=== PATIENT | male | born 1930 | race Caucasian/White ===

== ENCOUNTER 2017-06-01 04:15 | Emergency (ER) | payer MEDICARE ==
[2017-06-01 04:40] VITALS: BP 175/68
--- NOTE | 2017-06-01 04:56 | EDM.PDOC ---
ED HPI GENERAL MEDICAL PROBLEM - General Chief Complaint: Respiratory Problem Stated Complaint: shortness of breath Time Seen by Provider: 06/01/17 04:48 Source of Information: Reports: Patient History Limitations: Reports: No Limitations - History of Present Illness INITIAL COMMENTS - FREE TEXT/NARRATIVE: PATIENT IS AN 86-YEAR-OLD GENTLEMAN WHO PRESENTS TO THE ER TODAY VIA PRIVATE VEHICLE. PATIENT STATES THAT HE AWOKE ABOUT AN HOUR AGO WITH A SEVERE COUGH AND YELLOW SPUTUM PRODUCTION. UPON WALKING FROM THE HOUSE INTO GARAGE TO GET INTO CAR, BECAME VERY SHORT OF BREATH AND HAD TO REST. NO CHEST PAIN OR DIAPHORESIS AT THAT TIME. PATIENT STATES THAT HE'S BEEN FEELING GENERALLY WELL LATELY. HE DID UNDERGO DENTAL PROCEDURE WITHIN THE LAST 2 MONTHS AND HAD SEVERAL TEETH PULLED. DENIES FEVER, NAUSEA, VOMITING, DIARRHEA, FALL, HEADACHE , DIZZINESS, OR VISION CHANGES. Onset: Today Duration: Hour(s): Improves with: Reports: None Worsens with: Reports: None Associated Symptoms: Reports: Cough, cough w sputum, Shortness of Breath. 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 - Related Data Allergies Allergy/AdvReac Type Severity Reaction Status Date / Time No Known Allergies Allergy Verified 06/01/17 04:32 Home Meds: Home Meds Aspirin [Halfprin] 81 mg PO DAILY 08/24/15 [History] Colestipol [Colestipol HCl] 1 gm PO DAILY 08/24/15 [History] Nitroglycerin [Nitrostat] 0.4 mg SL Q5M 08/24/15 [History] Simvastatin [Zocor] 80 mg PO DAILY 08/24/15 [History] Terazosin [Hytrin] 1 mg PO DAILY 08/25/15 [History] Vit A/Vit C/Vit E/Zinc/Copper [Preservision Areds Softgel] 1 cap PO BID [History] Carvedilol [Coreg] 25 mg PO WITHBREAKFAST #0 tablet 08/28/15 [Rx] Levofloxacin 750 mg PO DAILY #6 tablet 08/28/15 [Rx] Lisinopril [Prinivil] 10 mg PO BID #90 tablet 08/28/15 [Rx] Past Medical History HEENT History: Reports: Impaired Vision Cardiovascular History: Reports: High Cholesterol Gastrointestinal History: Reports: None Genitourinary History: Reports: None Musculoskeletal History: Reports: Arthritis Oncologic (Cancer) History: Reports: Prostate - Infectious Disease History Infectious Disease History: Reports: Chicken Pox, Measles, Mumps - Past Surgical History HEENT Surgical History: Reports: LASIK, Other (See Below) Cardiovascular Surgical History: Reports: Coronary Artery Bypass Male Surgical History: Reports: Other (See Below) Musculoskeletal Surgical History: Reports: Shoulder Replacement, Shoulder Surgery, Other (See Below) Social & Family History - Family History Respiratory: Reports: Asthma - Tobacco Use Smoking Status *Q: Former Smoker Years of Tobacco use: 62 Packs/Tins Daily: 1 Month Tobacco Last Used: unknown Second Hand Smoke Exposure: No - Alcohol Use Days Per Week of Alcohol Use: 0 - Recreational Drug Use Recreational Drug Use: No ED ROS GENERAL - Review of Systems Review Of Systems: ROS reveals no pertinent complaints other than HPI. Constitutional: Reports: Decreased Appetite HEENT: Reports: No Symptoms Respiratory: Reports: Shortness of Breath Cardiovascular: Reports: No Symptoms Endocrine: Reports: No Symptoms GI/Abdominal: Reports: No Symptoms : Reports: No Symptoms Musculoskeletal: Reports: No Symptoms Skin: Reports: No Symptoms Neurological: Reports: No Symptoms Psychiatric: Reports: No Symptoms Hematologic/Lymphatic: Reports: No Symptoms Immunologic: Reports: No Symptoms ED EXAM, GENERAL - Physical Exam Exam: See Below Exam Limited By: No Limitations General Appearance: Alert, WD/WN, No Apparent Distress Eye Exam: Bilateral Eye: Normal Inspection Nose: Normal Inspection, Normal Mucosa, No Blood Throat/Mouth: Normal Inspection, Normal Oropharynx, No Airway Compromise Head: Atraumatic, Normocephalic Neck: Normal Inspection, Supple, Non-Tender Respiratory/Chest: No Respiratory Distress, Rales (BIBASILAR) Cardiovascular: Regular Rate, Rhythm, No Murmur GI/Abdominal: Normal Bowel Sounds, Soft, Non-Tender Back Exam: Normal Inspection. No: CVA Tenderness (L), CVA Tenderness (R) Extremities: Normal Inspection, No Pedal Edema Neurological: Alert, Oriented, CN II-XII Intact, Normal Cognition, No Motor/ Sensory Deficits Psychiatric: Normal Affect, Normal Mood Skin Exam: Warm, Dry, Intact, Normal Color, No Rash Lymphatic: No Adenopathy EKG INTERPRETATION EKG Date: 06/01/17 Time: 04:30 Rhythm: NSR Rate (Beats/Min): 66 QRS: RBBB Comparison: NA - No Prior EKG Course - Vital Signs Last Recorded V/S: Last Vital Signs Temp 97.5 F 06/01/17 04:32 Pulse 65 06/01/17 04:32 Resp 22 H 06/01/17 04:32 BP 175/68 H 06/01/17 04:32 Pulse Ox 88 L 06/01/17 04:32 - Orders/Labs/Meds Orders: Active Orders 24 hr Category Date Time Status EKG Documentation Completion [RC] ASDIRECTED Care 06/01/17 04:50 Ordered Chest 2V [CR] Stat Exams 06/01/17 04:48 Ordered CBC WITH AUTO DIFF [HEME] Stat Lab 06/01/17 04:48 Ordered COMPREHENSIVE METABOLIC PN,CMP [CHEM] Stat Lab 06/01/17 04:48 Ordered CULTURE SPUTUM + SMEAR [RM] Stat Lab 06/01/17 04:48 Uncollected TROPONIN I [CHEM] Stat Lab 06/01/17 04:48 Ordered EKG 12 Lead [EK] Routine Ther 06/01/17 04:48 Ordered - Radiology Interpretation Free Text/Narrative:: CXR SHOWS EARLY PNEUMONIA AND HYPERINFLATION - Re-Assessments/Exams Free Text/Narrative Re-Assessment/Exam: 06/01/17 05:43 PATIENT AFEBRILE, NONTOXIC APPEARING, VITAL SIGNS STABLE. ROCEPHIN AND ZITHROMAX GIVEN IN ER. PATIENT WILL FOLLOW UP WITH PRIMARY CARE ON MONDAY. PATIENT DENIES CHEST PAIN, NAUSEA, VOMITING. Departure - Departure Time of Disposition: 05:45 Disposition: Home, Self-Care 01 Condition: Good Clinical Impression: Pneumonia Qualifiers: Pneumonia type: due to unspecified organism Laterality: bilateral Lung location : lower lobe of lung Qualified Code(s): J18.9 - Pneumonia, unspecified organism COPD (chronic obstructive pulmonary disease) with emphysema Qualifiers: Emphysema type: unspecified Qualified Code(s): J43.9 - Emphysema, unspecified - Discharge Information Instructions: Shortness of Breath, [id number], Community-Acquired Pneumonia, Adult, [id number], Chronic Obstructive Pulmonary Disease, [id number] Referrals: Kathy Chisholm MD [Physician] - Additional Instructions: FOLLOW UP AT [facility] ON MONDAY FOR RECHECK. RETURN TO ER SOONER IF SYMPTOMS CONTINUE - My Orders Last 24 Hours: My Active Orders 06/01/17 04:48 Chest 2V [CR] Stat CBC WITH AUTO DIFF [HEME] Stat COMPREHENSIVE METABOLIC PN,CMP [CHEM] Stat CULTURE SPUTUM + SMEAR [RM] Stat TROPONIN I [CHEM] Stat EKG 12 Lead [EK] Routine 06/01/17 04:50 EKG Documentation Completion [RC] ASDIRECTED - Assessment/Plan Last 24 Hours: My Active Orders 06/01/17 04:48 Chest 2V [CR] Stat CBC WITH AUTO DIFF [HEME] Stat COMPREHENSIVE METABOLIC PN,CMP [CHEM] Stat CULTURE SPUTUM + SMEAR [RM] Stat TROPONIN I [CHEM] Stat EKG 12 Lead [EK] Routine 06/01/17 04:50 EKG Documentation Completion [RC] ASDIRECTED Assessment:: PNEUMONIA Plan: FOLLOW-UP WITH PCP ON MONDAY
[2017-06-01] MEDS ORDERED: Albuterol/Ipratropium 3.0-0.5 MG/3 ML Neb Soln NEB ONE (05:18)
[2017-06-01 05:19] LABS: CHLORIDE,CL 105 mmol/L (98-115); SODIUM,NA 138 mmol/L (136-145)
[2017-06-01] MEDS ORDERED: Azithromycin 250 MG Tab PO ONE (05:42)
[2017-06-01] MEDS ORDERED: cefTRIAXone 1 GM Vial IM ONE (05:42)
[2017-06-01] MEDS ORDERED: cefTRIAXone 1 GM Vial ONE (05:43)
[2017-06-01] MEDS ORDERED: Azithromycin 250 MG Tab ONE (05:44)
[2017-06-01] MEDS ORDERED: Lidocaine 1% 20 ML MDV ONE (05:45)
== END 2017-06-01 06:05 | disposition home or self-care (01) ==
LOC: KA.ED 04:15
DX: J18.9 Pneumonia, unspecified organism (principal); J43.9 Emphysema, unspecified; E78.00 Pure hypercholesterolemia, unspecified; Z87.891 Personal history of nicotine dependence; Z79.82 Long term (current) use of aspirin; Z79.2 Long term (current) use of antibiotics; Z79.899 Other long term (current) drug therapy
CPT/HCPCS: 36415; 71020; 80053; 84484; 85025; 87070; 87077; 87205; 94640; 96372; 99284; A9270; J0696; 93005

== ENCOUNTER 2018-01-12 08:14 | Inpatient (IN) | payer MEDICARE ==
--- NOTE | 2018-01-12 08:55 | EDM.PDOC ---
ED HPI GENERAL MEDICAL PROBLEM - General Chief Complaint: Respiratory Problem Stated Complaint: SOB Time Seen by Provider: 01/12/18 08:42 Source of Information: Reports: Patient History Limitations: Reports: No Limitations - History of Present Illness INITIAL COMMENTS - FREE TEXT/NARRATIVE: PATIENT IS AN 87-YEAR-OLD GENTLEMAN WHO PRESENTS TO THE EMERGENCY DEPARTMENT THIS MORNING WITH A COMPLAINT OF SHORTNESS OF BREATH. PATIENT STATES OVER LAST FEW DAYS HE HAS BECOME PROGRESSIVELY SHORT OF BREATH. LAST EVENING, EVEN AT REST , HIS SHORTNESS OF BREATH WORSENED AND HE FELT NAUSEOUS. HAD A COUPLE EPISODES OF TINGLING ALL OVER AND HAD A VERY RESTLESS NIGHT. PATIENT STATES THAT THIS MORNING SYMPTOMS PERSISTED, SO DECIDED TO PRESENT TO THE EMERGENCY DEPARTMENT. PATIENT DENIES FEVER, VOMITING, ABDOMINAL PAIN, CHEST PAIN, HEADACHE, ANY FALLS OR TRAUMA, OR BOWEL CHANGES. Onset: Gradual Duration: Day(s): Quality: Reports: Other (DENIES CHEST PAIN) Improves with: Reports: None Worsens with: Reports: None Context: Reports: Activity Associated Symptoms: Reports: Loss of Appetite, Nausea/Vomiting, Shortness of Breath. Denies: Chest Pain, Fever/Chills - Related Data Allergies Allergy/AdvReac Type Severity Reaction Status Date / Time No Known Allergies Allergy Verified 01/12/18 08:23 Home Meds: Home Meds Aspirin [Halfprin] 81 mg PO DAILY 08/24/15 [History] Colestipol [Colestipol HCl] 1 gm PO DAILY 08/24/15 [History] Nitroglycerin [Nitrostat] 0.4 mg SL Q5M 08/24/15 [History] Simvastatin [Zocor] 80 mg PO DAILY 08/24/15 [History] Terazosin [Hytrin] 1 mg PO DAILY 08/25/15 [History] Vit A/Vit C/Vit E/Zinc/Copper [Preservision Areds Softgel] 1 cap PO BID [History] Carvedilol [Coreg] 25 mg PO WITHBREAKFAST #0 tablet 08/28/15 [Rx] Levofloxacin 750 mg PO DAILY #6 tablet 08/28/15 [Rx] Lisinopril [Prinivil] 10 mg PO BID #90 tablet 08/28/15 [Rx] Past Medical History HEENT History: Reports: Impaired Vision Cardiovascular History: Reports: High Cholesterol Respiratory History: Reports: COPD Gastrointestinal History: Reports: None Genitourinary History: Reports: None Musculoskeletal History: Reports: Arthritis Oncologic (Cancer) History: Reports: Prostate - Infectious Disease History Infectious Disease History: Reports: Chicken Pox, Measles, Mumps - Past Surgical History HEENT Surgical History: Reports: LASIK, Other (See Below) Cardiovascular Surgical History: Reports: Coronary Artery Bypass Male Surgical History: Reports: Other (See Below) Musculoskeletal Surgical History: Reports: Shoulder Replacement, Shoulder Surgery, Other (See Below) Social & Family History - Family History Respiratory: Reports: Asthma - Caffeine Use Caffeine Use: Reports: None ED ROS GENERAL - Review of Systems Review Of Systems: ROS reveals no pertinent complaints other than HPI. Constitutional: Reports: No Symptoms HEENT: Reports: No Symptoms Respiratory: Reports: Shortness of Breath Cardiovascular: Reports: No Symptoms Endocrine: Reports: No Symptoms GI/Abdominal: Reports: Nausea. Denies: Abdominal Pain, Bloody Stool, Constipation, Diarrhea, Vomiting : Reports: No Symptoms Musculoskeletal: Reports: No Symptoms Skin: Reports: No Symptoms Neurological: Reports: No Symptoms Psychiatric: Reports: No Symptoms Hematologic/Lymphatic: Reports: No Symptoms Immunologic: Reports: No Symptoms ED EXAM, GENERAL - Physical Exam Exam: See Below Exam Limited By: No Limitations General Appearance: Alert, WD/WN, No Apparent Distress Nose: Normal Inspection, Normal Mucosa, No Blood Throat/Mouth: Normal Inspection, Normal Oropharynx, No Airway Compromise Head: Atraumatic, Normocephalic Neck: Normal Inspection, Supple Respiratory/Chest: No Respiratory Distress, Decreased Breath Sounds (BIBASILAR) Cardiovascular: Regular Rate, Rhythm, No Murmur GI/Abdominal: Normal Bowel Sounds, Soft, Non-Tender, No Organomegaly, No Distention, No Abnormal Bruit, No Mass Back Exam: Normal Inspection. No: CVA Tenderness (L), CVA Tenderness (R) Extremities: Normal Inspection, No Pedal Edema Neurological: Alert, Oriented, Normal Cognition Psychiatric: Normal Affect, Normal Mood Skin Exam: Warm, Dry, Intact, Normal Color, No Rash Lymphatic: No Adenopathy EKG INTERPRETATION EKG Date: 01/12/18 Time: 09:15 Rhythm: Other (Sinus bradycardia with first-degree AV block) Rate (Beats/Min): 52 QRS: RBBB ST-T: Other (Nonspecific T wave) Comparison: No Change (From EKG on 06/01/2017) Course - Vital Signs Last Recorded V/S: Last Vital Signs Temp 96.3 F 01/12/18 08:24 Pulse 60 01/12/18 08:24 Resp 22 H 01/12/18 08:24 BP 157/73 H 01/12/18 08:24 Pulse Ox 88 L 01/12/18 08:24 - Orders/Labs/Meds Orders: Active Orders 24 hr Category Date Time Status EKG Documentation Completion [RC] ASDIRECTED Care 01/12/18 08:47 Ordered CXR [Chest 2V] [CR] Stat Exams 01/12/18 08:33 Ordered B-TYPE NATRIURETIC PEPTIDE,BNP [CHEM] Stat Lab 01/12/18 08:46 Ordered CBC WITH AUTO DIFF [HEME] Stat Lab 01/12/18 08:33 Ordered COMPREHENSIVE METABOLIC PN,CMP [CHEM] Stat Lab 01/12/18 08:33 Ordered TROPONIN I [CHEM] Stat Lab 01/12/18 08:47 Ordered EKG 12 Lead [EK] Routine Ther 01/12/18 08:47 Ordered - Radiology Interpretation Free Text/Narrative:: Two-view chest x-ray shows moderate congestive heart failure - Re-Assessments/Exams Free Text/Narrative Re-Assessment/Exam: 01/12/18 10:13 Patient afebrile, nontoxic appearing, vital signs stable. Patient required 2 L nasal cannula for saturation 93-94% Discussed the case with Jhonny Larson. He will accept admission inpatient and follow. Departure - Departure Time of Disposition: 10:15 Disposition: Admitted As Inpatient 65 Condition: Fair Clinical Impression: CHF (congestive heart failure) Qualifiers: Heart failure type: unspecified Heart failure chronicity: acute on chronic Qualified Code(s): I50.9 - Heart failure, unspecified - Discharge Information Referrals: Rajinder Britton MD [Primary Care Provider] - Forms: ED Department Discharge - My Orders Last 24 Hours: My Active Orders 01/12/18 08:33 CXR [Chest 2V] [CR] Stat CBC WITH AUTO DIFF [HEME] Stat COMPREHENSIVE METABOLIC PN,CMP [CHEM] Stat 01/12/18 08:46 B-TYPE NATRIURETIC PEPTIDE,BNP [CHEM] Stat 01/12/18 08:47 EKG Documentation Completion [RC] ASDIRECTED TROPONIN I [CHEM] Stat EKG 12 Lead [EK] Routine - Assessment/Plan Last 24 Hours: My Active Orders 01/12/18 08:33 CXR [Chest 2V] [CR] Stat CBC WITH AUTO DIFF [HEME] Stat COMPREHENSIVE METABOLIC PN,CMP [CHEM] Stat 01/12/18 08:46 B-TYPE NATRIURETIC PEPTIDE,BNP [CHEM] Stat 01/12/18 08:47 EKG Documentation Completion [RC] ASDIRECTED TROPONIN I [CHEM] Stat EKG 12 Lead [EK] Routine Assessment:: CHF Plan: Admit inpatient to Jhonny Larson
[2018-01-12 09:28] LABS: ANION GAP 11.3 mmol/L (5-15); CHLORIDE,CL 104 mmol/L (98-115); SODIUM,NA 137 mmol/L (136-145)
[2018-01-12] MEDS ORDERED: Furosemide 40 MG/4 ML VIAL IVPUSH ONE (09:29)
[2018-01-12] MEDS ORDERED: Lidocaine 2% 100 MG/5 ML Syringe IVPUSH PRN (14:09)
[2018-01-12] MEDS ORDERED: Nitroglycerin 0.4 MG Tab.SL SL PRN ×2 (14:09→15:54)
[2018-01-12] MEDS ORDERED: EPINEPHrine 1:10,000 1 MG/10 ML Syringe IVPUSH PRN (14:09)
[2018-01-12] MEDS ORDERED: Atropine 0.1 MG/ML 10 ML Syringe IVPUSH PRN (14:09)
[2018-01-12] MEDS ORDERED: Albuterol/Ipratropium 3.0-0.5 MG/3 ML Neb Soln INH PRN (15:54)
[2018-01-12] MEDS: Lutein/Minerals/Vitamins A, C & E Tab PO SCH (20:44)
[2018-01-12] MEDS: SYMBICORT INH SCH (20:45)
[2018-01-13] MEDS: Aspirin 81 MG Tab.EC PO SCH (08:32)
[2018-01-13] MEDS: Lutein/Minerals/Vitamins A, C & E Tab PO SCH ×2 (08:32→19:55)
[2018-01-13] MEDS: Carvedilol 12.5 MG Tab PO SCH (08:34)
[2018-01-13] MEDS: SYMBICORT INH SCH ×2 (08:36→19:57)
[2018-01-13] MEDS: Simvastatin 20 MG Tab PO SCH (08:40)
[2018-01-13] MEDS ORDERED: Lisinopril 5 MG Tab PO SCH (09:00)
[2018-01-13] MEDS ORDERED: Furosemide 40 MG/4 ML VIAL IVPUSH SCH (10:45)
[2018-01-13] MEDS: Potassium Chloride 10 MEQ Tab.ER PO SCH (11:05)
--- NOTE | 2018-01-13 12:34 | PN ---
01/13/2018 PATIENT NAME: VIJAY BANKS SUBJECTIVE: This is an 87-year-old gentleman who stays very active usually. 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 The patient states over the past week he had been complaining of shortness of breath. He just was not feeling so good. He could feel that his lungs were filling up with fluid as he describes it. He denies any ankle edema, so he presented to the emergency room for further evaluation. At that time, a chest x-ray was obtained, which showed moderate pulmonary edema. The patient's brain natriuretic peptide was elevated, so the patient was admitted to the hospital for further treatment and evaluation at that time. Today now, the patient states that he does feel a little better. He really likes the oxygen. He says the oxygen makes him feel better and he can breathe better and he does not feel so short of breath. He says that he did go to the bathroom after they gave him the Lasix in the emergency room. He still feels like he is short of breath though, but not as bad as he was at home. He denies any chest pain or cough. OBJECTIVE: VITAL SIGNS: Today, the patient's weight is 128 pounds, pulse is 78, blood pressure is 140/90, respiratory rate is 20, and oxygen saturation is 93% on 2 L nasal cannula. LABORATORY DATA: The patient's lab work that was obtained yesterday, CBC shows white count within normal range at 9.1, hemoglobin 12.0, and platelet count at 201. The patient's chemistry panel is basically unremarkable except for calcium slightly low at 8.4, but his albumin is low at 2.84. The patient's troponin yesterday was negative. His brain natriuretic peptide was very elevated at 2380. We will recheck a basic metabolic panel in the morning. Chest x-ray that was obtained in the emergency room did show moderate pulmonary congestion. The patient's EKG that was obtained in the emergency room showed sinus bradycardia with first degree AV block with a right bundle-branch block. IMPRESSION AND PLAN: 1. Congestive heart failure exacerbation with history of coronary artery disease. Plan: The patient's brain natriuretic peptide was very elevated at 2380. We are going to start him on diuresing him. The patient was given 40 mg Lasix IV in the emergency room. We are going to start him on Lasix 40 mg IV twice a day. We will do accurate I's and O's with daily weights, try to monitor his fluid status. He does not have any peripheral edema that I can see at all. His lungs sounds are very crackling with rales. We will continue with Nitrostat as needed for any chest pain. He denies any chest pain today. Also continue with aspirin, baby aspirin at 81 mg daily. We will see how the patient is doing tomorrow. Continue him on oxygen 2 L nasal cannula at this time also. 2. History of hypertension. Plan: We will continue with Coreg 12.5 mg daily, beta felipa, I did increase the patient's lisinopril today which he was only on 5 mg. I did increase this to 10 mg. His blood pressure was 140/90 today. 3. History of hyperlipidemia. Plan: Continue with colestipol 1 g daily along with Zocor 40 mg daily. 4. History of COPD. Plan: Continue with Symbicort inhaler twice a day along with DuoNebs as needed. OVERALL PLAN: We are going to try to diurese the patient to try and monitor his fluid status with accurate I's and O's and daily weights. Most likely we will have to do a repeat chest x-ray for further assessment. /[id number]/MODL
[2018-01-13] MEDS: Furosemide 40 MG/4 ML VIAL IVPUSH SCH (17:23)
[2018-01-14] MEDS: SYMBICORT INH SCH ×2 (06:17→18:28)
[2018-01-14] MEDS: Lutein/Minerals/Vitamins A, C & E Tab PO SCH ×2 (06:18→18:28)
[2018-01-14] MEDS: Furosemide 40 MG/4 ML VIAL IVPUSH SCH (07:40)
[2018-01-14] MEDS: Carvedilol 12.5 MG Tab PO SCH (07:44)
[2018-01-14 07:55] LABS: ANION GAP 17.6 mmol/L (5-15); CHLORIDE,CL 99 mmol/L (98-115); SODIUM,NA 145 mmol/L (136-145)
[2018-01-14] MEDS: Aspirin 81 MG Tab.EC PO SCH (09:17)
[2018-01-14] MEDS: Simvastatin 20 MG Tab PO SCH (09:17)
[2018-01-14] MEDS: Potassium Chloride 10 MEQ Tab.ER PO SCH (09:17)
[2018-01-14] MEDS: Lisinopril 10 MG Tab PO SCH (09:18)
[2018-01-15] MEDS: Lutein/Minerals/Vitamins A, C & E Tab PO SCH (06:06)
[2018-01-15] MEDS: SYMBICORT INH SCH (06:07)
[2018-01-15] MEDS: Aspirin 81 MG Tab.EC PO SCH (08:16)
[2018-01-15] MEDS: Simvastatin 20 MG Tab PO SCH (08:16)
[2018-01-15] MEDS: Potassium Chloride 10 MEQ Tab.ER PO SCH (08:16)
[2018-01-15] MEDS: Lisinopril 10 MG Tab PO SCH (08:19)
[2018-01-15] MEDS: Carvedilol 12.5 MG Tab PO SCH (08:19)
[2018-01-15 08:23] VITALS: BP 163/76
[2018-01-15] MEDS ORDERED: Furosemide 40 MG/4 ML VIAL IVPUSH SCH (09:00)
--- NOTE | 2018-01-15 09:19 | PN ---
01/14/2018 PATIENT NAME: VIJAY BANKS SUBJECTIVE: This is an 87-year-old gentleman who stays pretty active at home. 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 He was at home, and he noticed over the past week, he was more short of breath than usual. He says that he felt like his lungs were filling up with fluid. He was short of breath. He denies any cough. He denies any fever or chills. He went to the emergency room for evaluation. The chest x-ray revealed moderate pulmonary congestion. The patient's brain natriuretic peptide was elevated at 2380. He was admitted at that time with exacerbation of CHF. The patient does have a past cardiac history of a bypass surgery back in 1999. He has been pretty good since then. He says he has had no problems since that time. Now today, the patient says that his breathing is much better today. He has no cough. He says he feels a lot less short of breath. His lungs do not feel so congested. He does state that he has been having some pain across his chest for the last couple of years. He denies any sudden chest pain. The patient's troponins on admission were negative. Overall, he does feel better today. OBJECTIVE: VITAL SIGNS: Today, the patient's weight is down 4 pounds. He weighs 124 pounds today. Pulse rate is 55, blood pressure is 138/68. The patient's respiratory rate is 18, and oxygen saturation on 2-1/2 L per nasal cannula is 94%. GENERAL: This is an elderly white gentleman in no acute distress. He is very slender. ABDOMEN: Soft, nontender, nondistended. Bowel sounds present x4. HEART: Tones are regular rate and rhythm. No murmurs identified. LUNGS: Sounds are clear throughout lung canales. This is much improved from yesterday. His lungs sounds are very wet and rales throughout lung sounds yesterday. Today, they sound clear. EXTREMITIES: No pedal edema noted on exam. LABORATORY DATA: The patient's lab work that was obtained today. Basic metabolic panel shows his BUN slightly elevated at 28, creatinine 0.78. His GFR is greater than 60. His anion gap is slightly high at 17.6, otherwise unremarkable. IMPRESSION AND PLAN: 1. Congestive heart failure exacerbation with history of coronary artery disease and bypass surgery in 1999. Plan: The patient is much improved yesterday. He is down 4 pounds with the Lasix. His lungs sounds are much improved. The patient does state he has been having this chest pain on and off across his chest for a few years. I am going to obtain a troponin today. I am going to decrease his Lasix from 40 mg IV twice a day to once a day. We are going to continue with accurate I's and O's and daily weights. I am going to repeat a chest x-ray in the morning along with a repeat brain natriuretic peptide, possibly send him home. He seems to be doing much better. His lungs sounds are clear. He has denied any chest pain, but he can have some Nitrostat as needed for chest pain. We will continue on baby aspirin 81 mg daily. We will continue with oxygen at this time 2 to 2-1/2 L per nasal cannula. 2. History of hypertension. Plan: We will continue with Coreg 12.5 mg daily. We will continue on this dose of beta felipa. Blood pressure seems to be well controlled. We will continue with lisinopril at 10 mg daily. I did increase that yesterday. Blood pressure still is 138/68 today. Continue monitor closely. 3. History of hyperlipidemia. Plan: Continue with colestipol 1 g daily along with Zocor 40 mg daily. 4. History of chronic obstructive pulmonary disease. Plan: Continue with Symbicort inhaler twice a day along with DuoNeb as needed. OVERALL PLAN: We are going to continue to diurese the patient. I did decrease his Lasix to 40 mg IV once daily. Continue with accurate I's and O's. We will weigh him tomorrow. We will repeat a brain natriuretic peptide along with a chest x-ray tomorrow morning, most likely he is improving very well. I am going to repeat a troponin today. Most likely, we will discharge him tomorrow morning. /[id number]/MODL
--- NOTE | 2018-01-15 13:34 | DISCH ---
ADMITTING DIAGNOSIS: Exacerbation of congestive heart failure with shortness of breath. FINAL DIAGNOSES: Congestive heart failure, improved; and shortness of breath, improved. The patient going home on home oxygen. BRIEF HISTORY AND ESSENTIAL PHYSICAL FINDINGS: This is an 87-year-old gentleman who is usually very active. 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 He had been having some shortness of breath for the past week. He stated that it felt like he had water in his lungs, and he could not breathe very well. He became concerned, so he presented to the emergency room. At that time, chest x- ray showed moderate pulmonary congestion. The patient's brain natriuretic peptide was elevated at 2380. The patient was admitted to the hospital at that time for exacerbation of CHF. Today, now, the patient states that his breathing is much better. He feels better. He is not short of breath as before. He still says the oxygen makes it easier to breathe. He denies any chest pain at this time. He denies any ankle swelling. He denies any fever or chills. He denies any cough. SIGNIFICANT LABS XRAYS AND CONSULTATION FINDINGS: The patient's chest x-ray on admission showed moderate pulmonary congestion/edema. Repeat chest x-ray on day of discharge reads that there is minimal pleural reaction at both lung bases. No obvious edema. Impression, no subhash edema. The patient's EKG that was obtained in the emergency room showed sinus bradycardia with first-degree AV block at 52 beats per minute with right bundle-branch block. The patient's lab work that was obtained in the emergency room; CBC showed a white count within 9.1, hemoglobin 12.0. Chemistry panel is unremarkable except for calcium slightly low at 8.4. The patient's troponin was negative. His repeat troponin was also negative. Brain natriuretic peptide was elevated at 2380. The albumin was slightly low at 2.84. Repeat basic metabolic panel as obtained on 01/14/2018 showed the patient's BUN at 28. His anion gap was slightly elevated at 17.6, otherwise unremarkable. Troponin that day was also negative. Repeat lab work that was done on day of discharge on 01/15/2018 showed the brain natriuretic peptide had come down to 628. COURSE IN HOSPITAL WITH COMPLICATIONS IF ANY: When the patient was admitted, he was very short of breath with very wet sounding lungs sounds. The patient was diuresed with IV Lasix. The patient's I's and O's throughout the hospital stay was roughly minus 4500 mL. The patient's weight on admission was 131, on day of discharge, it was 126. The patient's breathing did improve. His oxygen saturations did also improved. His lung sounds improved. He denies any problems with the nausea or chest pain. He says that he has been having a pain across his chest for about two years, most likely noncardiac related. CONDITION TREATMENT AND FINAL DISPOSITION ON DISCHARGE AND PROGNOSIS: Condition is much improved. Final disposition will be home. IMPRESSION AND PLAN: 1. Exacerbation of congestive heart failure with history of coronary artery disease. Plan: The patient's brain natriuretic peptide on admission was 2380, has come down to 628. Chest x-ray on admission showed moderate pulmonary congestion. Chest x-ray that was obtained this morning shows minimal pleural reaction at both lung bases. No obvious edema per Radiology. I am going to send the patient home today on Lasix 20 mg daily. I also did increase his lisinopril from 5 mg daily to 10 mg daily. His lung sounds today are clear in upper lobes. There are some fine crackles down at bilateral bases. I also sent him home back on his baby aspirin 81 mg daily. I am going to send him home on home oxygen. The patient did an oxygen test for home oxygen. He was 87% oxygen saturations at rest while awake for 15 minutes. Send him home on home oxygen. Respiratory therapist did evaluate the patient to qualify for home oxygen. 2. History of hypertension. Plan: We will continue with Coreg, beta-felipa, at 12.5 mg daily. I did increase the patient's lisinopril to 10 mg daily. Blood pressure is good except for today, it was slightly elevated, but we will recheck that at followup. The patient will follow up with myself on Monday morning in the clinic. 3. History of hyperlipidemia. Plan: Continue with colestipol 1 g daily along with Zocor 40 mg daily. 4. History of chronic obstructive pulmonary disease. Plan: Continue with Symbicort inhaler twice a day along with DuoNeb as needed. OVERALL PLAN: I am going to send the patient home today with home oxygen. I did put the patient on Lasix 20 mg daily and increase his lisinopril from 5 to 10 mg. He will follow up with me in the clinic on Monday. He will need a basic metabolic panel to check his potassium, to see if he needs potassium supplement with the Lasix. I am going to set the patient up prior to follow up for a cardiac echo along with pulmonary function test prior to follow up. /[id number]/MODL
--- NOTE | 2018-01-24 10:06 | HP ---
HISTORY OF PRESENT ILLNESS: This is an 87-year-old gentleman who stays very active on a regular basis. 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 The patient states that over the past week, he had been complaining of shortness of breath. He just was not feeling so good. He felt like his lungs were filling up with fluid. He says that he was short of breath. He denied any ankle swelling. The patient states that the shortness of breath continued to get worse and worse, so that the patient presented to the emergency room for further evaluation and treatment. At that time in the emergency room, a chest x - ray was obtained, which showed moderate pulmonary edema with congestion. The patient's brain natriuretic peptide was elevated, so the patient was admitted to the hospital for further treatment and evaluation. Today on rounds, when I saw the patient, the patient states that he does feel a little better. He feels like the oxygen really helps him breathe. He feels less short of breath today. He denies any cough or chest pain. The patient did receive some IV Lasix in the emergency room. PAST MEDICAL HISTORY: The patient has a history of hypertension, hyperlipidemia, COPD, CHF, coronary artery disease, ischemic cardiomyopathy, status post coronary bypass surgery in 1999, history of rheumatic fever, history of squamous cell carcinoma, and he used to be an ex-smoker of tobacco products. PAST SURGICAL HISTORY: I know he did have the CABG in 1999. MEDICATIONS: Medications that he was taking at home: Lisinopril 5 mg daily; Symbicort inhaler twice daily; he used some triamcinolone cream as needed; Remeron 15 mg at bedtime; he had some DuoNebs, he would use as needed; aspirin 81 mg daily; Aleve as needed; Coreg 12.5 mg daily; simvastatin 40 mg daily; Nitrostat as needed; and Colestid 1 g daily. ALLERGIES: He has no known drug allergies. 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 He is not smoking cigarettes at this time. He denies any alcohol use. He is mostly retired and lives here in our local community. FAMILY HISTORY: Not available. REVIEW OF SYSTEMS: CONSTITUTIONAL: No weight loss. No fever. No chills. No night sweats. Appetite is good. No fatigue. EYES: No recent visual changes. ENT: No sinus congestion or hoarseness. CARDIOVASCULAR: No chest pain or palpitations. RESPIRATORY: The patient does feel short of breath. No cough. GI: No vomiting, diarrhea or melena. : No dysuria or hematuria. MUSCULOSKELETAL: No new bone pain or joint swelling. INTEGUMENTARY: No rash or pruritus. NEUROLOGIC/PSYCHIATRIC: No recent headache or focal weakness. No depressive symptoms. ENDOCRINE: No heat or cold intolerances or polydipsia. HEMATOLOGIC/LYMPHATIC: No excessive bruising or lymph node swelling. ALLERGIC/IMMUNOLOGIC: No hives or recurrent infections. PHYSICAL EXAMINATION: GENERAL: This is an elderly white male in no acute distress. VITAL SIGNS: Weight is 128 pounds, pulse is 78, blood pressure 140/90, respiratory rate is 20, oxygen saturation on 2 L of nasal cannula is 93%. HEENT: Head is normocephalic. EOMs are intact. Pupils are equal, round, and reactive to light. Bilateral tympanic membranes are intact. Nose is clear. No pharyngeal erythema noted. NECK: Supple. No JVD. Trachea midline. LUNGS: Sounds are clear in upper lobes, diminished at bilateral bases. CARDIAC: Regular rate and rhythm. No murmurs identified. ABDOMEN: Soft, nontender, nondistended. Bowel sounds present x4. EXTREMITIES: Full range of motion. No joint effusions noted. NEUROLOGICAL: Grossly intact. DIAGNOSTIC: The patient had an EKG obtained in the emergency room, which showed sinus bradycardia with first-degree AV block with right bundle-branch block, 52 beats per minute. The patient's chest x-ray report that was obtained in the emergency room showed moderate congestion per Radiology. The patient's lab work that was obtained yesterday in the emergency room. CBC showed a white count within normal range at 9.1, hemoglobin 12.0, and platelet count at 201. The patient's chemistry panel is basically unremarkable except for calcium slightly low at 8.4 with albumin is low at 2.84. The patient's troponin yesterday was negative. His brain natriuretic peptide was very elevated at 2380. We will recheck a basic metabolic panel in the morning. Chest x-ray that was obtained in the emergency room did show moderate pulmonary congestion as mentioned before. IMPRESSION/PLAN: 1. Congestive heart failure exacerbation with history of coronary artery disease. Plan: The patient's brain natriuretic peptide was very elevated at 2380. We are going to start him on diuresing him. The patient was given 40 mg of Lasix IV in the emergency room. We are going to start him on Lasix 40 mg IV twice a day. We will do accurate I's and O's and daily weights. Try to monitor his fluid status very closely. He does not have any peripheral edema that I can see on exam. His lungs sounds are very crackly with loud rales. We will continue with Nitrostat as needed for any chest pain. He denies any chest pain today. Also continue with baby aspirin 81 mg daily. We will continue him on the oxygen at 2 L nasal cannula. 2. History of hypertension. Plan: Continue with Coreg 12.5 mg daily, which is his beta felipa. I did increase the patient's lisinopril today, which he was only on 5 mg, increased to 10 mg. His blood pressure was 140/90 today. 3. History of hyperlipidemia. Plan: Continue with colestipol 1 g daily along with Zocor 40 mg daily. 4. History of chronic obstructive pulmonary disease. Plan: Continue with Symbicort inhaler twice a day along with DuoNeb as needed. OVERALL PLAN: We are going to try to diurese the patient. He does have loud rales to his bilateral lower lung sounds. No pedal edema noted. We will try to obtain an accurate I's and O's with daily weights, and we will repeat a basic metabolic panel tomorrow morning and monitor his electrolyte and fluid status. Also repeat chest x-ray will be needed for further assessment either tomorrow or the next day. /[id number]/MODL MTDD
== END 2018-01-15 10:25 | disposition home or self-care (01) | DRG 293 ==
LOC: KA.ED 08:14 → KA.MS 10:11 → UNDODISIN 01-15 10:25
PROVIDERS: ADMIT Physician Assistant Surgical; ATTEND Nurse Practitioner Family
DX: I11.0 Hypertensive heart disease with heart failure (principal); I50.9 Heart failure, unspecified; E78.00 Pure hypercholesterolemia, unspecified; I25.10 Atherosclerotic heart disease of native coronary artery without angina pectoris; I25.5 Ischemic cardiomyopathy; J44.9 Chronic obstructive pulmonary disease, unspecified; R00.1 Bradycardia, unspecified; E78.5 Hyperlipidemia, unspecified; I44.0 Atrioventricular block, first degree; I45.10 Unspecified right bundle-branch block; H54.7 Unspecified visual loss; M19.90 Unspecified osteoarthritis, unspecified site; Z95.1 Presence of aortocoronary bypass graft; Z79.82 Long term (current) use of aspirin; Z79.899 Other long term (current) drug therapy; Z85.46 Personal history of malignant neoplasm of prostate; Z87.891 Personal history of nicotine dependence
CPT/HCPCS: 36415; 71046; 80048; 80053; 83880; 84484; 85025; 93005; 96374; 99285; A9270-GY; J1940

== ENCOUNTER 2018-07-15 13:25 | Emergency (ER) | payer MEDICARE ==
[2018-07-15 13:38] VITALS: BP 152/73
[2018-07-15] MEDS ORDERED: Lidocaine 1% 20 ML MDV ONE (14:38)
--- NOTE | 2018-07-15 15:07 | CR ---
[id number] RAD/RAD Knee Right 3V EXAM: RAD Knee Right 3V CLINICAL DATA: RIGHT KNEE PAIN COMPARISON: NO PREVIOUS SIMILAR EXAM IS AVAILABLE. FINDINGS: Significant degenerative changes are seen. Extensive vascular calcifications are identified. There is no fracture or dislocation.. IMPRESSION: NO ACUTE PLAIN FILM ABNORMALITY. Rio Page MD 07/15/18 [id number] Thank you for allowing us to participate in the care of your patient.
--- NOTE | 2018-07-15 15:08 | EDM.PDOC ---
ED HPI GENERAL MEDICAL PROBLEM - General Chief Complaint: Back Pain or Injury Stated Complaint: Unable to walk Time Seen by Provider: 07/15/18 13:40 Source of Information: Reports: Patient History Limitations: Reports: No Limitations - History of Present Illness INITIAL COMMENTS - FREE TEXT/NARRATIVE: Mr. Mojica is an 88-year-old gentleman that is brought in by a friend today with complaints of difficulty with ambulation pain and swelling in his knees and chronic low back pain. He's had acute on chronic episode of pain in his lower back with a recent MRI of the lumbar spine. 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 His central canal is patent throughout. 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 He mainly complains that his knees are bothering me 7 increased difficulty with his ambulation. Continues to live at home and is the main care provider for his as well as himself. 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 He has this job so he can pay further medications. He is been in the emergency room recently for significant constipation likely caused from him being on hydrocodone. He also takes muscle relaxers for his lower back. He reports because of his inactivity recently he feels his knee pain has gotten worse. He denies any calf swelling or tenderness. He is thin but nontoxic appearing he is alert and conversive and has good judgment with his questioning and answers. 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: Other Medication(s) Bilateral Posterior Knee Pain Score (Numeric/FACES): 9 Lower Back Pain Score (Numeric/FACES): 8 - Related Data Allergies Allergy/AdvReac Type Severity Reaction Status Date / Time No Known Allergies Allergy Verified 07/15/18 13:33 Home Meds: Home Meds Aspirin [Halfprin] 81 mg PO DAILY 02/15/16 [History] Colestipol [Colestipol HCl] 1 gm PO DAILY 08/24/15 [History] Nitroglycerin [Nitrostat] 0.4 mg SL Q5M PRN 08/24/15 [History] Simvastatin [Zocor] 40 mg PO DAILY@1200 08/24/15 [History] Vit A/Vit C/Vit E/Zinc/Copper [Preservision Areds Softgel] 2 cap PO BID [History] Albuterol/Ipratropium [DuoNeb 3.0-0.5 MG/3 ML] 1 dose INH QID PRN 01/12/18 [ History] Budesonide/Formoterol Fumarate [Symbicort 160-4.5 Mcg Inhaler] 2 puff IH BID 12/25 [History] Carvedilol [Coreg] 12.5 mg PO WITHBREAKFAST 01/12/18 [History] Naproxen Sodium 220 mg PO Q12HR PRN 01/12/18 [History] Triamcinolone Acetonide [Triamcinolone Acetonide 0.025%] 1 applic TOP BID PRN [History] Lisinopril 10 mg PO DAILY #30 tablet 01/15/18 [Rx] Hydrocodone/Acetaminophen [Hydrocodon-Acetaminophn 10-325] 1 each PO Q6H PRN # 10 tablet 06/30/18 [Rx] Methocarbamol [Robaxin-750] 750 mg PO TID PRN #15 tablet 06/30/18 [Rx] Furosemide [Lasix] 20 mg PO DAILY PRN 07/02/18 [History] Omeprazole 20 mg PO 0500 #30 cap.cr 07/05/18 [Rx] Sennosides/Docusate Sodium [Senna Plus Tablet] 1 tab PO BID #30 tab 07/05/18 [Rx ] Trolamine Salicylate/Aloe Vera [Aspercreme 10%] 1 gm TOP Q1H PRN #1 tube [Rx] Past Medical History HEENT History: Reports: Hard of Hearing, Impaired Vision Cardiovascular History: Reports: Cardiomyopathy, Heart Failure, High Cholesterol , Hypertension, [place] Respiratory History: Reports: COPD, Pneumonia, Recurrent, Other (See Below) Other Respiratory History: O2 prn - uses 75% of the day - @L/NC Gastrointestinal History: Reports: Chronic Constipation Genitourinary History: Reports: Other (See Below) Other Genitourinary History: prostate Ca Musculoskeletal History: Reports: Arthritis, Back Pain, Chronic, Other (See Below) Other Musculoskeletal History: severe backpain for past 6-8 weeks, PT/ chiropractitioner for it ineffetive, HX compresses disk Neurological History: Reports: None Psychiatric History: Reports: None Endocrine/Metabolic History: Reports: None Hematologic History: Reports: None Immunologic History: Reports: None Oncologic (Cancer) History: Reports: Prostate, Other (See Below) Other Oncologic History: skin CAncer Dermatologic History: Reports: Other (See Below) Other Dermatologic History: skin cancer - scattered dry scabs and fine red rash to upper back due to same - Infectious Disease History Infectious Disease History: Reports: Chicken Pox, Measles, Mumps - Past Surgical History HEENT Surgical History: Reports: TED Cardiovascular Surgical History: Reports: Coronary Artery Bypass Respiratory Surgical History: Reports: Other (See Below) Other Respiratory Surgeries/Procedures: "cough for % years, had lung aspirated - sml particles where removed" GI Surgical History: Reports: None Male Surgical History: Reports: None Endocrine Surgical History: Reports: None Neurological Surgical History: Reports: None Musculoskeletal Surgical History: Reports: Shoulder Replacement, Shoulder Surgery Oncologic Surgical History: Reports: Other (See Below) Other Oncologic Surgeries/Procedures: skin biopsy Dermatological Surgical History: Reports: Skin Biopsy, Other (See Below) Social & Family History - Family History Family Medical History: Noncontributory Respiratory: Reports: Asthma - Tobacco Use Smoking Status *Q: Former Smoker Years of Tobacco use: 67 Used Tobacco, but Quit: Yes Month/Year Tobacco Last Used: 19 - Caffeine Use Caffeine Use: Reports: None - Recreational Drug Use Recreational Drug Use: No ED ROS GENERAL - Review of Systems Review Of Systems: See Below Constitutional: Denies: Fever HEENT: Reports: No Symptoms Respiratory: Denies: Shortness of Breath Cardiovascular: Denies: Chest Pain Endocrine: Denies: Fatigue GI/Abdominal: Denies: Abdominal Pain, Distension, Nausea, Vomiting : Reports: No Symptoms Musculoskeletal: Reports: Back Pain, Joint Pain (bilateral knees), Joint Swelling (bilateral knees), Muscle Stiffness Skin: Reports: No Symptoms Neurological: Reports: No Symptoms Hematologic/Lymphatic: Reports: No Symptoms Immunologic: Reports: No Symptoms ED EXAM,LOWER BACK PAIN/INJURY - Physical Exam Exam: See Below Exam Limited By: No Limitations General Appearance: Alert, No Apparent Distress, Thin Throat/Mouth: Normal Voice, No Airway Compromise Head: Atraumatic Neck: Normal Inspection Respiratory/Chest: No Respiratory Distress GI/Abdominal: Soft, Non-Tender Back Exam: Decreased Range of Motion, Paraspinal Tenderness Extremities: Joint Swelling (Bilateral knees), Limited Range of Motion (5 due about 125 bilaterally at the knees), Increased Warmth. No: Redness Neurological: Alert, Oriented x 3 Psychiatric: Normal Affect, Depressed Mood Skin Exam: Warm, Dry, Intact, Normal Color, No Rash ED LACERATION/WOUND PROCEDURES - Additional/Other Procedure(s) Other (Free Text) Procedure(s): Bilateral knees were prepped with ChloraPrep. Both knees were injected with 5 mL 1% Xylocaine to anesthetize the skin and joint. 18-gauge needle was inserted into the joint and 35 mL of synovial fluid was aspirated from the left knee. Syringes were exchanged using the same needle 3 mL lidocaine and 60 Kenalog was injected into the left knee without difficulty. Right knee exam was aspirated using an 18-gauge needle and 30 mL of synovial fluid was aspirated. Syringes were exchanged cc of lidocaine and 60 Kenalog was then injected into the right knee without difficulty patient heart procedure well. Course - Vital Signs Last Recorded V/S: Last Vital Signs Temp 99 F 07/15/18 13:34 Pulse 79 07/15/18 13:34 Resp 18 07/15/18 13:34 BP 152/73 H 07/15/18 13:34 Pulse Ox 94 L 07/15/18 13:34 - Orders/Labs/Meds Orders: Active Orders 24 hr Category Date Time Status MISCELLANEOUS CULT [MREF] Stat Lab 07/15/18 15:15 Received MISCELLANEOUS CULT [MREF] Stat Lab 07/15/18 15:16 Received SYNOVIAL CRYSTALS Stat Lab 07/15/18 15:15 Received SYNOVIAL CRYSTALS Stat Lab 07/15/18 15:16 Received SYNOVIAL FLUID, CELL COUNT Stat Lab 07/15/18 15:15 Received SYNOVIAL FLUID, CELL COUNT Stat Lab 07/15/18 15:16 Received Sodium Chloride 0.9% [Normal Saline] 1,000 ml Med 07/15/18 17:31 Active IV .BOLUS Medication Orders Sodium Chloride (Normal Saline) 1,000 mls @ 999 mls/hr IV .BOLUS ONE Stop: 07/15/18 18:31 Last Admin: 07/15/18 17:38 Dose: 999 mls/hr Labs: Laboratory Tests 07/15/18 07/15/18 Range/Units 16:00 16:00 WBC 13.34 H (5.00-10.00) 10^3/uL RBC 4.25 L (4.50-6.00) 10^6/uL Hgb 12.9 L (13.0-17.0) g/dL Hct 38.2 L (40.0-52.0) % MCV 89.9 (82.0-92.0) fL MCH 30.4 (27.0-31.0) pg MCHC 33.8 (32.0-36.0) g/dL RDW 14.1 (11.5-14.5) % Plt Count 257 (150-400) 10^3/uL MPV 10.8 H (7.4-10.4) fL Immature Gran % (Auto) 0.1 (0.0-5.0) % Neut % (Auto) 74.0 H (50.0-70.0) % Lymph % (Auto) 16.0 L (20.0-40.0) % [place] % (Auto) 9.8 H (2.0-8.0) % Eos % (Auto) 0.0 L (1.0-3.0) % Baso % (Auto) 0.1 (0.0-1.0) % Immature Gran # (Auto) 0.02 (0.00-0.50) 10^3/uL Neut # (Auto) 9.86 H (2.50-7.00) 10^3/uL Lymph # (Auto) 2.14 (1.00-4.00) 10^3/uL [place] # (Auto) 1.31 H (0.10-0.80) 10^3/uL Eos # (Auto) 0.00 L (0.10-0.30) 10^3/uL Baso # (Auto) 0.01 (0.00-0.10) 10^3/uL Sodium 128 L (136-145) mmol/L Potassium 3.7 (3.3-5.3) mmol/L Chloride 97 L (98-115) mmol/L Carbon Dioxide 27.7 (21.0-32.0) mmol/L Anion Gap 7.0 (5-15) mmol/L BUN 17 (6-25) mg/dL Creatinine 0.67 (0.51-1.17) mg/dL Est Cr Clr Drug Dosing 54.67 mL/min Estimated GFR (MDRD) > 60 mL/min Glucose 137 H (75 - 99) mg/dL Calcium 9.3 (8.7-10.3) mg/dL Meds: Medications Generic Name Dose Route Start Last Admin Trade Name Freq PRN Reason Stop Dose Admin Sodium Chloride 1,000 mls @ 999 mls/hr 07/15/18 17:31 07/15/18 17:38 Normal Saline IV 07/15/18 18:31 999 mls/hr .BOLUS ONE Administration Discontinued Medications Generic Name Dose Route Start Last Admin Trade Name Freq PRN Reason Stop Dose Admin Lidocaine HCl Confirm 07/15/18 14:38 07/15/18 15:30 Xylocaine 1% Administered 07/15/18 14:39 Not Given Dose 20 ml .ROUTE .STK-MED ONE Lidocaine HCl 6 ml 07/15/18 15:15 07/15/18 15:15 Xylocaine 1% INJECT 07/15/18 15:16 6 ml ONETIME ONE Administration Lidocaine HCl 3 ml 07/15/18 15:15 07/15/18 15:15 Xylocaine 1% INJECT 07/15/18 15:16 3 ml ONETIME ONE Administration Lidocaine HCl 6 ml 07/15/18 15:15 07/15/18 15:15 Xylocaine 1% INJECT 07/15/18 15:16 6 ml ONETIME ONE Administration Lidocaine HCl 3 ml 07/15/18 15:15 07/15/18 15:15 Xylocaine 1% INJECT 07/15/18 15:16 3 ml ONETIME ONE Administration Triamcinolone Acetonide 60 mg 07/15/18 15:52 07/15/18 15:15 Kenalog-40 INJECT 07/15/18 15:53 60 mg ONETIME ONE Administration Triamcinolone Acetonide 60 mg 07/15/18 16:17 07/15/18 15:15 Kenalog-40 INJECT 07/15/18 16:18 60 mg ONETIME ONE Administration - Radiology Interpretation Free Text/Narrative:: X-rays bilateral knees 3 views Impression: -Tricompartment knee DJD with chondrocalcinosis is noted bilaterally. Abdomen x-ray 1 view Findings: -There is abnormal small bowel distention. The bowel obstruction or ischemic bowel. Considers contrast CT abdomen and pelvis Impression: -Abnormal bowel gas pattern. Question of ischemic bowel. CT abdomen with IV contrast Impression: -Gallstones. No evidence of cholecystitis. No evidence of ischemic bowel. Uncomplicated colonic diverticular disease. Normal appendix. - Re-Assessments/Exams Free Text/Narrative Re-Assessment/Exam: 07/15/18 17:43 Patient's lab work showed that he was hyponatremic he is given 1 L of normal saline IV fluids as likely cause is secondary to hypovolemia Departure - Departure Time of Disposition: 19:00 Disposition: Home, Self-Care 01 Condition: Fair Clinical Impression: Bilateral knee effusions, Hyponatremia Degenerative joint disease of left knee Qualifiers: Osteoarthritis type: primary Qualified Code(s): M17.12 - Unilateral primary osteoarthritis, left knee Degenerative joint disease of knee, right Qualifiers: Osteoarthritis type: primary Qualified Code(s): M17.11 - Unilateral primary osteoarthritis, right knee Chronic low back pain without sciatica Qualifiers: Back pain laterality: bilateral Qualified Code(s): M54.5 - Low back pain; G89.29 - Other chronic pain - Discharge Information Instructions: Knee Effusion, Back Pain, Adult, [id number], Joint Pain Referrals: Jhonny Larson [facility] [Primary Care Provider] - Forms: ED Department Discharge Additional Instructions: 1. Both her knees today were aspirated and injected with Kenalog. 2. Synovial fluid analysis was knees will be obtained as well as cultures. 3. I have reviewed your MRI of your lumbar spine. He had advanced her dental changes throughout the lower back with old compression fractures of L4 and T11. There central canal is patent throughout. Conservative measures for an arthritic degenerative back is recommended. Avoidance of narcotics should be avoided due to to severe constipation and possible confusion. He may benefit from trying some tramadol or NSAIDs. He may continue to take muscle relaxers if they are helpful. 4. I've discussed my concern for your ability to continue to be independent in caring for your at this time due to your limited mobility and pain. We'll have you discuss with her primary care about the possibility of extended care facility. - My Orders Last 24 Hours: My Active Orders 07/15/18 15:15 MISCELLANEOUS CULT [MREF] Stat SYNOVIAL CRYSTALS Stat SYNOVIAL FLUID, CELL COUNT Stat 07/15/18 15:16 MISCELLANEOUS CULT [MREF] Stat SYNOVIAL CRYSTALS Stat SYNOVIAL FLUID, CELL COUNT Stat 07/15/18 17:31 Sodium Chloride 0.9% [Normal Saline] 1,000 ml IV .BOLUS - Assessment/Plan Last 24 Hours: My Active Orders 07/15/18 15:15 MISCELLANEOUS CULT [MREF] Stat SYNOVIAL CRYSTALS Stat SYNOVIAL FLUID, CELL COUNT Stat 07/15/18 15:16 MISCELLANEOUS CULT [MREF] Stat SYNOVIAL CRYSTALS Stat SYNOVIAL FLUID, CELL COUNT Stat 07/15/18 17:31 Sodium Chloride 0.9% [Normal Saline] 1,000 ml IV .BOLUS Assessment:: 1. Bilateral knee DJD 2. Bilateral knee effusion 3. Advanced degenerative disc disease lumbar spine 4. Old compression fractures of L4 and T11 chronic 5. Hyponatremia likely due to hypovolemia, replacement with 1 L normal saline 6. Follow-up with your primary care in 1 week to check electrolytes. Plan: 1. Both her knees today were aspirated and injected with Kenalog. 2. Synovial fluid analysis was knees will be obtained as well as cultures. 3. I have reviewed your MRI of your lumbar spine. He had advanced her dental changes throughout the lower back with old compression fractures of L4 and T11. There central canal is patent throughout. Conservative measures for an arthritic degenerative back is recommended. Avoidance of narcotics should be avoided due to to severe constipation and possible confusion. He may benefit from trying some tramadol or NSAIDs. He may continue to take muscle relaxers if they are helpful. 4. I've discussed my concern for your ability to continue to be independent in caring for your at this time due to your limited mobility and pain. We'll have you discuss with her primary care about the possibility of extended care facility. 5. Follow-up with primary care in 1 week for electrolyte lab work
--- NOTE | 2018-07-15 15:08 | CR ---
[id number] RAD/RAD Abdomen Flat Plate 1V Exam: RAD Abdomen Flat Plate 1V Clinical Data: ABDOMINAL PAIN. VOMITING. DIARRHEA. COMPARISON: CORRELATION IS MADE WITH THE CAT SCAN OF JULY 02, 2018. FINDINGS: There is abnormal small bowel distention. The bowel obstruction or ischemic bowel. Consider contrast CT abdomen and pelvis. IMPRESSION: ABNORMAL BOWEL GAS PATTERN. QUESTION OF ISCHEMIC BOWEL. Rio Page MD 07/15/18 [id number] Thank you for allowing us to participate in the care of your patient.
--- NOTE | 2018-07-15 15:09 | CR ---
[id number] RAD/RAD Knee Left 3V EXAM: RAD Knee Left 3V CLINICAL DATA: LEFT KNEE PAIN COMPARISON: NO PREVIOUS SIMILAR EXAM IS AVAILABLE. FINDINGS: Vascular surgical changes are seen. There is no fracture or dislocation.. IMPRESSION: NO ACUTE PLAIN FILM ABNORMALITY. Rio Page MD 07/15/18 [id number] Thank you for allowing us to participate in the care of your patient.
[2018-07-15] MEDS ORDERED: Lidocaine 1% 50 ML MDV INJECT ONE ×4 (15:15)
[2018-07-15] MEDS ORDERED: Lidocaine 1% 20 ML MDV INJECT ONE ×2 (15:15→15:52)
[2018-07-15] MEDS ORDERED: Triamcinolone Acetonide 40 MG/ML 10 ML MDV INJECT ONE ×2 (15:52→16:17)
[2018-07-15 16:40] LABS: CHLORIDE,CL 97 mmol/L (98-115); SODIUM,NA 128 mmol/L (136-145)
[2018-07-15] MEDS ORDERED: Sodium Chloride 0.9% 1,000 ML IV ONE (17:31)
--- NOTE | 2018-07-15 17:34 | CT ---
[id number] CT/CT Abdomen Pelvis W IV EXAM: CT Abdomen Pelvis W IV CLINICAL DATA: POSSIBLE ISCHEMIC BOWEL COMPARISON: CORRELATION IS MADE WITH THE EXAM OF JULY 02, 2018. FINDINGS: Pulmonary parenchymal fibrotic changes are seen. The liver and spleen show no acute abnormalities. There is a small hiatal hernia. There are gallstones. There are diffuse atheromatous calcifications. The kidneys show no mass or hydronephrosis. The adrenals and pancreas are unremarkable. The mesenteric vessels demonstrate normal enhancement. The pelvis shows no mass or adenopathy. There is uncomplicated significant colonic diverticular disease without diverticulitis. The appendix is normal. There is no bowel obstruction or bowel wall thickening. There is no pneumatosis intestinalis. IMPRESSION: GALLSTONES. NO EVIDENCE OF CHOLECYSTITIS. NO EVIDENCE OF ISCHEMIC BOWEL. UNCOMPLICATED COLONIC DIVERTICULAR DISEASE. NORMAL APPENDIX. Rio Page MD 07/15/18 [id number] Thank you for allowing us to participate in the care of your patient.
== END 2018-07-15 18:30 | disposition home or self-care (01) ==
LOC: KA.ED 13:25
DX: M51.36 Other intervertebral disc degeneration, lumbar region (principal); M17.0 Bilateral primary osteoarthritis of knee; E87.1 Hypo-osmolality and hyponatremia; E86.1 Hypovolemia; J44.9 Chronic obstructive pulmonary disease, unspecified; I42.9 Cardiomyopathy, unspecified; E78.00 Pure hypercholesterolemia, unspecified; I25.2 Old myocardial infarction; I11.0 Hypertensive heart disease with heart failure; I50.9 Heart failure, unspecified; Z87.891 Personal history of nicotine dependence; Z87.81 Personal history of (healed) traumatic fracture; Z79.82 Long term (current) use of aspirin; Z79.899 Other long term (current) drug therapy; Z95.1 Presence of aortocoronary bypass graft
CPT/HCPCS: 20610; 73562-LT; 73562-RT; 74018; 74177; 80048; 85025; 87070; 87205; 89051; 89060; 99283; 99284; J3301; J7030

== ENCOUNTER 2018-10-02 16:27 | Inpatient (IN) | payer MEDICARE ==
--- NOTE | 2018-10-02 17:06 | EDM.PDOC ---
ED HPI GENERAL MEDICAL PROBLEM - General Chief Complaint: Respiratory Problem Stated Complaint: SHORT OF BREATH Time Seen by Provider: 10/02/18 16:57 Source of Information: Reports: Patient History Limitations: Reports: No Limitations - History of Present Illness INITIAL COMMENTS - FREE TEXT/NARRATIVE: Patient is an 88-year-old gentleman who presents to the emergency department this afternoon with a complaint of shortness of breath. Patient states that this has been going on for 2-3 days and progressively worsening. Patient states he is okay at rest and when he has his oxygen on at home, however, when he ambulates, he becomes short of breath. Patient states he has had similar symptoms in the past. He underwent lumbar surgery August 2018. Patient states he is making a good recovery and denies any recent pain or injury. Patient denies fever, chest pain, nausea, vomiting, diarrhea, abdominal pain, no extremity edema, headache, or any facial or extremity numbness or tingling. Onset: Gradual Duration: Day(s):, Intermittent Severity: Mild Improves with: Reports: Rest Worsens with: Reports: Movement Associated Symptoms: Reports: Cough, Shortness of Breath. Denies: Chest Pain, Fever/Chills, Nausea/Vomiting - Related Data Allergies Allergy/AdvReac Type Severity Reaction Status Date / Time No Known Allergies Allergy Verified 08/11/18 11:28 Home Meds: Home Meds Aspirin [Halfprin] 81 mg PO DAILY 08/24/15 [History] Colestipol [Colestipol HCl] 1 gm PO DAILY 08/24/15 [History] Nitroglycerin [Nitrostat] 0.4 mg SL Q5M PRN 08/24/15 [History] Simvastatin [Zocor] 40 mg PO DAILY@1200 08/24/15 [History] Vit A/Vit C/Vit E/Zinc/Copper [Preservision Areds Softgel] 2 cap PO BID [History] Albuterol/Ipratropium [DuoNeb 3.0-0.5 MG/3 ML] 1 dose INH QID PRN 01/12/18 [ History] Budesonide/Formoterol Fumarate [Symbicort 160-4.5 Mcg Inhaler] 2 puff IH BID 12/25 [History] Carvedilol [Coreg] 12.5 mg PO WITHBREAKFAST 01/12/18 [History] Naproxen Sodium 220 mg PO Q12HR PRN 01/12/18 [History] Lisinopril 10 mg PO DAILY #30 tablet 01/15/18 [Rx] Methocarbamol [Robaxin-750] 750 mg PO TID PRN #15 tablet 06/30/18 [Rx] Furosemide [Lasix] 20 mg PO DAILY PRN 07/02/18 [History] Trolamine Salicylate/Aloe Vera [Aspercreme 10%] 1 gm TOP Q1H PRN #1 tube [Rx] Acetaminophen [Tylenol] 650 mg PO Q6H PRN 10/02/18 [History] Omeprazole 20 mg PO DAILY 10/02/18 [History] Ondansetron [Zofran ODT] 4 mg PO TID PRN 10/02/18 [History] Sennosides/Docusate Sodium [Senna Plus Tablet] 2 tab PO BID 10/02/18 [History] Terazosin [Hytrin] 1 mg PO BEDTIME 10/02/18 [History] Past Medical History HEENT History: Reports: Hard of Hearing, Impaired Vision Cardiovascular History: Reports: Cardiomyopathy, Heart Failure, High Cholesterol , Hypertension, MD Respiratory History: Reports: COPD, Pneumonia, Recurrent, Other (See Below) Other Respiratory History: O2 prn - uses 75% of the day - @L/NC Gastrointestinal History: Reports: Chronic Constipation Genitourinary History: Reports: Other (See Below) Other Genitourinary History: prostate Ca Musculoskeletal History: Reports: Arthritis, Back Pain, Chronic, Other (See Below) Other Musculoskeletal History: severe backpain for past 6-8 weeks, PT/ chiropractitioner for it ineffetive, HX compresses disk Neurological History: Reports: None Psychiatric History: Reports: None Endocrine/Metabolic History: Reports: None Hematologic History: Reports: None Immunologic History: Reports: None Oncologic (Cancer) History: Reports: Prostate, Other (See Below) Other Oncologic History: skin CAncer Dermatologic History: Reports: Other (See Below) Other Dermatologic History: skin cancer - scattered dry scabs and fine red rash to upper back due to same - Infectious Disease History Infectious Disease History: Reports: Chicken Pox, Measles, Mumps - Past Surgical History Head Surgeries/Procedures: Reports: None HEENT Surgical History: Reports: LASIK Cardiovascular Surgical History: Reports: Coronary Artery Bypass Respiratory Surgical History: Reports: Other (See Below) Other Respiratory Surgeries/Procedures: "cough for % years, had lung aspirated - sml particles where removed" GI Surgical History: Reports: None Male Surgical History: Reports: None Endocrine Surgical History: Reports: None Neurological Surgical History: Reports: None Musculoskeletal Surgical History: Reports: Shoulder Replacement, Shoulder Surgery, Other (See Below) Other Musculoskeletal Surgeries/Procedures:: back surgery 08/08/2018 Oncologic Surgical History: Reports: Other (See Below) Other Oncologic Surgeries/Procedures: skin biopsy Dermatological Surgical History: Reports: Skin Biopsy, Other (See Below) Social & Family History - Family History Family Medical History: Noncontributory Respiratory: Reports: Asthma - Caffeine Use Caffeine Use: Reports: None ED ROS GENERAL - Review of Systems Review Of Systems: ROS reveals no pertinent complaints other than HPI. Constitutional: Reports: Fatigue HEENT: Reports: No Symptoms Respiratory: Reports: Shortness of Breath Cardiovascular: Reports: Dyspnea on Exertion. Denies: Chest Pain Endocrine: Reports: No Symptoms GI/Abdominal: Reports: No Symptoms : Reports: No Symptoms Musculoskeletal: Reports: No Symptoms Skin: Reports: No Symptoms Neurological: Reports: No Symptoms Psychiatric: Reports: No Symptoms Hematologic/Lymphatic: Reports: No Symptoms Immunologic: Reports: No Symptoms ED EXAM, GENERAL - Physical Exam Exam: See Below Exam Limited By: No Limitations General Appearance: Alert, WD/WN, No Apparent Distress Eye Exam: Bilateral Eye: Normal Inspection Throat/Mouth: Normal Inspection, Normal Oropharynx, No Airway Compromise Head: Atraumatic, Normocephalic Neck: Normal Inspection Respiratory/Chest: No Respiratory Distress, No Accessory Muscle Use, Rales ( Bibasilar). No: Rhonchi, Wheezing, Accessory Muscle Use Cardiovascular: Regular Rate, Rhythm, Systolic Murmur GI/Abdominal: Normal Bowel Sounds, Soft, Non-Tender, No Organomegaly, No Distention, No Abnormal Bruit, No Mass Back Exam: Normal Inspection. No: CVA Tenderness (L), CVA Tenderness (R) Extremities: Normal Inspection, No Pedal Edema Neurological: Alert, Oriented, CN II-XII Intact, Normal Cognition Psychiatric: Normal Affect, Normal Mood Skin Exam: Warm, Dry, Intact, Normal Color, No Rash EKG INTERPRETATION EKG Date: 10/02/18 Time: 17:05 Rhythm: Other (Sinus rhythm with occasional premature ventricular complexes) Rate (Beats/Min): 71 [place]: Normal P-Wave: Present QRS: RBBB Comparison: No Change Course - Vital Signs Last Recorded V/S: Last Vital Signs Temp 97.0 F 10/02/18 16:49 Pulse 80 10/02/18 16:49 Resp 29 H 10/02/18 16:49 BP 157/79 H 10/02/18 16:49 Pulse Ox 78 L 10/02/18 16:49 - Orders/Labs/Meds Orders: Active Orders 24 hr Category Date Time Status EKG Documentation Completion [RC] ASDIRECTED Care 10/02/18 16:48 Active CXR [Chest 2V] [CR] Stat Exams 10/02/18 16:47 Ordered Labs: Laboratory Tests 10/02/18 10/02/18 10/02/18 Range/Units 16:50 16:50 16:50 WBC 10.13 H (5.00-10.00) 10^3/uL RBC 3.84 L (4.50-6.00) 10^6/uL Hgb 11.5 L D (13.0-17.0) g/dL Hct 35.2 L (40.0-52.0) % MCV 91.7 (82.0-92.0) fL MCH 29.9 (27.0-31.0) pg MCHC 32.7 (32.0-36.0) g/dL RDW 18.8 H (11.5-14.5) % Plt Count 246 (150-400) 10^3/uL MPV 11.1 H (7.4-10.4) fL Immature Gran % (Auto) 0.1 (0.0-5.0) % Neut % (Auto) 64.7 (50.0-70.0) % Lymph % (Auto) 24.7 (20.0-40.0) % [place] % (Auto) 9.1 H (2.0-8.0) % Eos % (Auto) 1.1 (1.0-3.0) % Baso % (Auto) 0.3 (0.0-1.0) % Immature Gran # (Auto) 0.01 (0.00-0.50) 10^3/uL Neut # (Auto) 6.56 (2.50-7.00) 10^3/uL Lymph # (Auto) 2.50 (1.00-4.00) 10^3/uL [place] # (Auto) 0.92 H (0.10-0.80) 10^3/uL Eos # (Auto) 0.11 (0.10-0.30) 10^3/uL Baso # (Auto) 0.03 (0.00-0.10) 10^3/uL Sodium 145 (136-145) mmol/L Potassium 4.6 (3.3-5.3) mmol/L Chloride 98 (98-115) mmol/L Carbon Dioxide 28.4 (21.0-32.0) mmol/L Anion Gap 23.2 H (5-15) mmol/L BUN 27 H (6-25) mg/dL Creatinine 0.68 (0.51-1.17) mg/dL Est Cr Clr Drug Dosing 54.48 mL/min Estimated GFR (MDRD) > 60 mL/min Glucose 96 (75 - 99) mg/dL Calcium 8.9 (8.7-10.3) mg/dL Total Bilirubin 0.5 (0.2-1.0) mg/dL AST 21 (15-37) U/L ALT 13 (12-78) U/L Alkaline Phosphatase 111 (46-116) IU/L B-Natriuretic Peptide 4590 H (0-100) pg/mL Total Protein 6.5 (6.4-8.2) g/dL Albumin 2.68 L (3.00-4.80) g/dL Meds: Medications Discontinued Medications Generic Name Dose Route Start Last Admin Trade Name Freq PRN Reason Stop Dose Admin Furosemide 40 mg 10/02/18 17:43 Lasix IVPUSH 10/02/18 17:44 NOW ONE - Radiology Interpretation Free Text/Narrative:: Chest x-ray shows bilateral congestion consistent with CHF. Small bilateral pleural effusions noted - Re-Assessments/Exams Free Text/Narrative Re-Assessment/Exam: 10/02/18 17:43 Patient afebrile, vital signs stable, and saturation 97 on 4 L nasal cannula. 40 mg Lasix given in ER. Discussed case with Dr. Coronel, he will admit inpatient and follow. Departure - Departure Time of Disposition: 17:43 Disposition: Admitted As Inpatient 65 Condition: Fair Clinical Impression: Shortness of breath on exertion CHF (congestive heart failure) Qualifiers: Heart failure type: unspecified Heart failure chronicity: acute on chronic Qualified Code(s): I50.9 - Heart failure, unspecified - Discharge Information Referrals: Rajinder Britton MD [Primary Care Provider] - Forms: ED Department Discharge - My Orders Last 24 Hours: My Active Orders 10/02/18 16:47 CXR [Chest 2V] [CR] Stat 10/02/18 16:48 EKG Documentation Completion [RC] ASDIRECTED - Assessment/Plan Last 24 Hours: My Active Orders 10/02/18 16:47 CXR [Chest 2V] [CR] Stat 10/02/18 16:48 EKG Documentation Completion [RC] ASDIRECTED Assessment:: Congestive heart failure, shortness of breath Plan: Admit inpatient to Dr. Coronel
[2018-10-02 17:20] LABS: ANION GAP 23.2 mmol/L (5-15); CHLORIDE,CL 98 mmol/L (98-115); SODIUM,NA 145 mmol/L (136-145)
[2018-10-02] MEDS ORDERED: Furosemide 40 MG/4 ML VIAL IVPUSH ONE (17:43)
--- NOTE | 2018-10-02 17:57 | CR ---
[id number] RAD/RAD Chest PA And Lateral EXAM: RAD Chest PA And Lateral INDICATION: SHORTNESS OF BREATH COMPARISON: July 03, 2018 DISCUSSION: Cardiomegaly and central vascular congestion. Small bilateral pleural effusions and basal predominant edema. Findings have progressed since prior examination. IMPRESSION: Increased sequela of fluid retention in the chest compared to the prior examination. Yon Overton MD 10/02/18 [id number] Thank you for allowing us to participate in the care of your patient.
[2018-10-02] MEDS ORDERED: Nitroglycerin 0.4 MG Tab.SL SL PRN ×2 (18:27→23:12)
[2018-10-02] MEDS ORDERED: Albuterol/Ipratropium 3.0-0.5 MG/3 ML Neb Soln INH PRN (18:27)
[2018-10-02] MEDS ORDERED: Ondansetron 4 MG Tab.DIS PO PRN (18:27)
[2018-10-02] MEDS: Potassium Chloride 10 MEQ Tab.ER PO SCH (20:02)
[2018-10-02] MEDS: Carvedilol 12.5 MG Tab PO SCH (20:02)
[2018-10-02] MEDS ORDERED: Lidocaine 2% 100 MG/5 ML Syringe IVPUSH PRN (23:12)
[2018-10-02] MEDS ORDERED: Atropine 0.1 MG/ML 10 ML Syringe IVPUSH PRN (23:12)
[2018-10-02] MEDS ORDERED: EPINEPHrine 1:10,000 1 MG/10 ML Syringe IVPUSH PRN (23:12)
[2018-10-03] MEDS: Omeprazole 20 MG Cap.CR PO SCH (06:35)
[2018-10-03] MEDS: Acetaminophen 325 MG Tab PO PRN (06:40)
[2018-10-03] MEDS: Sodium Chloride 0.9% 10 ML Syringe FLUSH PRN ×3 (06:42→15:24)
[2018-10-03] MEDS: Aspirin 81 MG Tab.EC PO SCH (08:35)
[2018-10-03] MEDS: Potassium Chloride 10 MEQ Tab.ER PO SCH (08:35)
[2018-10-03] MEDS: Carvedilol 12.5 MG Tab PO SCH ×2 (08:39→17:34)
[2018-10-03] MEDS ORDERED: Lisinopril 10 MG Tab PO SCH (09:00)
--- NOTE | 2018-10-03 09:05 | HP ---
HISTORY OF PRESENT ILLNESS: This is an 88-year-old gentleman who presented to the emergency room with increasing shortness of breath. PAST MEDICAL HISTORY: This patient has had a previous history of COPD, ischemic coronary artery disease, gastritis, and hypercholesteremia. PHYSICAL EXAMINATION: VITAL SIGNS: I saw him at about 6:30 p.m. His vital signs reveal him to have a temperature of 97.0, height is 5 feet 1 inch, weight is 116 pounds, and pulse rate was 80. Blood pressure is 157/79, mean arterial pressure is 105, respiratory rate was 29, oxygen saturation was 78%. GENERAL: The patient was examined in his room. He was ambulatory and quite alert. HEENT: His head is normocephalic. ENT negative. NECK: The jugular veins are slightly engorged. Trachea is midline. LUNGS: Reveal crackles bilaterally. HEART: Regular rhythm. No thrills, no murmurs. ABDOMEN: Soft. EXTREMITIES: Reveal 1+ pitting edema. DIAGNOSTIC: Laboratory data: His hemoglobin is 11.5, white count 10.13. Electrolytes are normal. BUN was slightly elevated at 27. An anion gap was 23.2, slightly high. His beta-type natriuretic peptide was extremely high at 4590. Albumin was low at 2.68. IMPRESSION: Acute on chronic congestive heart failure, exact etiology is not known. PLAN: Diuresis with IV Lasix. We will check troponins. We will keep a close eye on him. We will eventually have to get a cardiac echo. Rule out valvular disease, ischemic cardiomyopathy, etc. /[id number]/MODL
[2018-10-03] MEDS ORDERED: Furosemide 40 MG/4 ML VIAL IVPUSH ONE ×2 (10:23→16:00)
[2018-10-03] MEDS: Simvastatin 20 MG Tab PO SCH (11:03)
--- NOTE | 2018-10-03 12:09 | PN ---
10/03/2018 PATIENT NAME: VIJAY BANKS CHIEF COMPLAINT: Feels much better. Less shortness of breath. Has lost some weight. BRIEF HISTORY: This 88-year-old gentleman was admitted to the hospital yesterday from the ED when he was complaining of some increasing shortness of breath. The patient stated that his shortness of breath seemed to be progressing over two to three days. He is on chronic oxygen at home. His shortness of breath was more on mild ambulation and exertion. He had underwent a lumbar surgery in August 2018. He is ongoing physical therapy and he is doing well with this. PERTINENT LABS: Upon admission, BNP 4590. White count 10.13. Neutrophilia normal at 65%. AST, ALT, alkaline phosphatase good. Troponin 0.07, now 0.08. Albumin 2.6. Intake and output, output 1200 mL. No documented intake. The patient is diuresing. Weight 110 pounds, it appears he lost 10 pounds, that could be factitious. REVIEW OF SYSTEMS: HEENT: Negative sore throat. RESPIRATORY: Mild shortness of breath. No cough. CV: Denies any chest pains or dizziness. ABDOMEN: No nausea, vomiting. No diarrhea. EXTREMITY: No edema. PHYSICAL EXAM: VITAL SIGNS: Blood pressure 122/63, heart rate 50, temperature 97.3, respiratory rate 20, and O2 sats 96%, this is on 3 L. LUNGS: Are clear to auscultation. CV: Regular rate and rhythm. NECK: Significant JVD noted right side. ABDOMEN: Soft. Good bowel tones. EXTREMITIES: No edema in the extremities. IMPRESSION: 1. Heart failure with reduced ejection fraction. Elevated cardiac biomarkers, likely cardiac strain type 2. We will continue to monitor carefully. Echocardiogram January 22, 2018, EF of 35%. Moderate reduced left ventricular systolic function, moderate dilated left atrium. Continue with beta felipa, Coreg 12.5 mg. Lasix 40 mg IV push x1 now. Restart JOSE inhibition. The patient is hemodynamically stable. We will increase it to 20 mg p.o. daily with a goal of 30. Monitor daily weights, intake and output. Monitor electrolytes. 2. Chronic but stable conditions, coronary artery disease. 3. Tobacco use disorder. 4. Hyperlipidemia. 5. Ischemic cardiomyopathy. 6. Chronic obstructive pulmonary disease on chronic oxygen. 7. BPH. OVERALL PLAN DISPOSITION: Continue with acute care status. Monitor electrolytes. Monitor potassium. IV diurese today. I do not anticipate a long care stay here. Serial Troponins. /[id number]/MODL
[2018-10-04] MEDS: Acetaminophen 325 MG Tab PO PRN ×3 (03:19→20:00)
[2018-10-04] MEDS: Omeprazole 20 MG Cap.CR PO SCH (08:05)
[2018-10-04] MEDS: Potassium Chloride 10 MEQ Tab.ER PO SCH (08:05)
[2018-10-04] MEDS: Aspirin 81 MG Tab.EC PO SCH (08:05)
[2018-10-04] MEDS: Sodium Chloride 0.9% 10 ML Syringe FLUSH PRN ×2 (08:06→13:58)
[2018-10-04 08:09] LABS: CHLORIDE,CL 100 mmol/L (98-115); SODIUM,NA 141 mmol/L (136-145)
[2018-10-04] MEDS: Carvedilol 12.5 MG Tab PO SCH ×2 (08:10→17:19)
[2018-10-04] MEDS: Lisinopril 20 MG Tab PO SCH (08:15)
[2018-10-04] MEDS: Simvastatin 20 MG Tab PO SCH (11:58)
[2018-10-04] MEDS ORDERED: Furosemide 40 MG/4 ML VIAL IVPUSH ONE (13:07)
[2018-10-04] MEDS: Fluticasone/Salmeterol 500-50 MCG Inhalation Powder 14/Diskus INH SCH ×3 (15:45→20:04)
--- NOTE | 2018-10-04 16:21 | PN ---
10/04/2018 PATIENT NAME: VIJAY BANKS CHIEF COMPLAINT: Does feel better, less cough, less shortness of breath. Nurses did report last night approximately a 10 to 15 beat run of ventricular tachycardia. Early this morning did review telemetry strips. The patient stated he had pain on the left side of his chest near a rib at that time. HISTORY: 88-year-old gentleman was admitted with some increasing shortness of breath. Over the past 2 to 3 days prior to admission, he is on chronic oxygen. He has been going through physical therapy since undergoing lumbar surgery back in August 2018. He did have a significant elevation of BNP of greater than 4500 on admission due to acute on chronic congestive heart failure. He had some fluid overload status and he has been here diuresing and he is doing quite well with that. Intake and output last 24 hours, negative 675. Weight this morning 111 pounds, approximately 9 pounds so far weight loss since his admission. REVIEW OF SYSTEMS: HEENT: Negative sore throat. RESPIRATORY: No shortness of breath. No cough and no sputum. CV: Had one episode of chest pain, likely chest wall pain this morning; does not correspond to episode of ventricular tachycardia. Denies any dizziness. ABDOMEN: No nausea or vomiting. No diarrhea. EXTREMITIES: No edema. PHYSICAL EXAM: VITAL SIGNS: Blood pressure 141/75, heart rate 56, O2 sats have improved, now on 3 to 4 L, 97%, respiratory rate 24, and temperature is afebrile. LUNGS: Are now clear to auscultation. CV: Regular rate and rhythm. Significant murmur. NECK: Slight JVD in right side, this is much improved. ABDOMEN: Soft with good bowel tones. EXTREMITIES: Thin. No edema noted. LABS: Sodium 141, potassium 3.9, BUN 26, creatinine 0.71, GFR greater than 60. Troponin normal at 0.07, calcium 8.8. IMPRESSION: 1. Heart failure with reduced ejection fraction, normal elevated cardiac biomarkers. This was likely due to cardiac strain type 2. Continue with telemetry. Reduce Lasix to one time dose of 20 mg today. I have restarted JOSE inhibition and increased his dosage. The patient is hemodynamically stable. Hopefully, we can get him to a goal of JOSE inhibition of 30 mg. We will continue to monitor daily weights, I and Os. Monitor electrolytes. Potassium is now normal. 2. Chronic but stable conditions include coronary artery disease, tobacco use disorder, hyperlipidemia, ischemic cardiomyopathy, chronic obstructive pulmonary disease which he is on chronic oxygen, and BPH. Overall disposition today, one more day of inpatient stay with telemetry to assess cardiac status since he had a 10 to 15 beat run of ventricular tachycardia. I will also assess magnesium. I do anticipate discharge tomorrow if he has ongoing stability. /[id number]/MODL
[2018-10-05] MEDS: Acetaminophen 325 MG Tab PO PRN (03:05)
[2018-10-05] MEDS: Omeprazole 20 MG Cap.CR PO SCH ×2 (06:14→06:33)
[2018-10-05] MEDS: Aspirin 81 MG Tab.EC PO SCH (08:31)
[2018-10-05] MEDS: Potassium Chloride 10 MEQ Tab.ER PO SCH (08:31)
[2018-10-05] MEDS: Carvedilol 12.5 MG Tab PO SCH (08:33)
[2018-10-05] MEDS: Lisinopril 20 MG Tab PO SCH (08:33)
[2018-10-05 08:34] VITALS: BP 136/71
--- NOTE | 2018-10-05 09:23 | PCM.DCSUM1 ---
Discharge Summary - Hospital Course Diagnosis: Stroke: No - Discharge Data Discharge Date: 10/05/18 Discharge Disposition: Home, Self-Care 01 Condition: Fair - Patient Instructions Diet: Low Sodium Activity: As Tolerated, Cough & Deep Breathe Showering/Bathing: May Shower Notify Provider of: Fever, Nausea and/or Vomiting Other/Special Instructions: Report any worsening shortness of breath,. Weigh yourself same time each day at home scale. Keep a journal of your weights and bring this in to clinic on appointments. I have also increased your lisinopril , this will help your heart - Discharge Plan *PRESCRIPTION DRUG MONITORING PROGRAM REVIEWED*: Not Applicable *COPY OF PRESCRIPTION DRUG MONITORING REPORT IN PATIENT HEATHER: Not Applicable Prescriptions/Med Rec: Lisinopril/Hydrochlorothiazide [Lisinopril-Hctz 20-12.5 mg Tab] 1 each PO DAILY #30 tablet Home Medications: Home Meds Aspirin [Halfprin] 81 mg PO DAILY 08/24/15 [History] Colestipol [Colestipol HCl] 1 gm PO DAILY 08/24/15 [History] Nitroglycerin [Nitrostat] 0.4 mg SL Q5M PRN 08/24/15 [History] Simvastatin [Zocor] 40 mg PO DAILY@1200 08/24/15 [History] Vit A/Vit C/Vit E/Zinc/Copper [Preservision Areds Softgel] 2 cap PO BID [History] Albuterol/Ipratropium [DuoNeb 3.0-0.5 MG/3 ML] 1 dose INH QID PRN 01/12/18 [ History] Budesonide/Formoterol Fumarate [Symbicort 160-4.5 Mcg Inhaler] 2 puff IH BID 12/25 [History] Carvedilol [Coreg] 12.5 mg PO BIDMEALS 01/12/18 [History] Naproxen Sodium 660 mg PO TID 01/12/18 [History] Methocarbamol [Robaxin-750] 750 mg PO TID PRN #15 tablet 06/30/18 [Rx] Furosemide [Lasix] 20 mg PO DAILY 07/02/18 [History] Trolamine Salicylate/Aloe Vera [Aspercreme 10%] 1 gm TOP Q1H PRN #1 tube [Rx] Acetaminophen [Tylenol] 650 mg PO Q6H PRN 10/02/18 [History] Omeprazole 20 mg PO DAILY 10/02/18 [History] Ondansetron [Zofran ODT] 4 mg PO TID PRN 10/02/18 [History] Sennosides/Docusate Sodium [Senna Plus Tablet] 2 tab PO BID 10/02/18 [History] Terazosin [Hytrin] 1 mg PO BEDTIME 10/02/18 [History] Lisinopril/Hydrochlorothiazide [Lisinopril-Hctz 20-12.5 mg Tab] 1 each PO DAILY #30 tablet 10/05/18 [Rx] Referrals: Jhonny Larson, CHARGE MACHINE OPERATOR [Nurse Practitioner] - (Anytime next week midweek) - Discharge Summary/Plan Comment DC Time >30 min.: Yes Discharge Summary/Plan Comment: Final diagnosis Heart failure with reduced ejection fraction, acute on chronic, systolic, Coronary artery disease, Hyperlipidemia Ischemic cardiomyopathy COPD BPH History, 88-year-old gentleman was admitted due to increased shortness of breath that he had 2-3 days prior to admission. Patient does have COPD and is on chronic oxygen however he had been going through physical therapy since undergoing lumbar surgery report 2018. An elevation in BNP greater than 4500 on admission due to acute on chronic congestive heart failure with some fluid volume overload status. He was admitted for close monitoring and IV diuresis. His chest x-ray on admission did show increased fluid retention pulmonary. Hospital course Went quite well, he diuresed considerably amount of fluid. He had no pedal edema however he has significant right-sided JVD. He was given Lasix, electrolytes were being monitored carefully, although he had significant output of urine his BNP did elevate to 4970. On discharge he was at significantly below his stated dry weight of 104 pounds (~15lbs wt loss) however doubtful this is quite accurate due to inconsistency in scales at hospital. He remained on telemetry department administrator hours of October 04 he did have approximate 10 beat run of V. tach. Troponin was assessed and it did not sound 0.08 so he was monitor more carefully for one more day in the hospital--no cardiac symptoms. EKG showed sinus bradycardia with first-degree AV block with PACs with possible left atrial enlargement with a right BBB--no change from previous. Medication changes/adjustments upon discharge Lisinopril/hydrochlorothiazide, 20/12.5 (newly added) Discontinue lisinopril home medication 10 mg Continue Lasix 20 mg daily Disposition, Patient in stable condition and desires to go home, he states he feels well, he was given an special instructions to weigh himself daily, same time same scale and bring journal of his weights to all appointments. Low sodium diet, report any shortness of breath, chest pain or any increase in oxygen needs. Considerations at follow-up Review echocardiogram Assessment new medication compliance and understanding Discuss advanced directive, end-of-life care Review weight journal BMP - General Info Functional Status: Reports: Pain Controlled - Review of Systems General: Denies: Fever, Weakness, Fatigue, Malaise HEENT: Reports: No Symptoms Pulmonary: Reports: No Symptoms Cardiovascular: Reports: No Symptoms Gastrointestinal: Reports: No Symptoms Genitourinary: Reports: No Symptoms Musculoskeletal: Reports: Back Pain Skin: Reports: No Symptoms Neurological: Reports: No Symptoms Psychiatric: Reports: No Symptoms - Patient Data Vitals - Most Recent: Last Vital Signs Temp 97.8 F 10/05/18 06:56 Pulse 65 10/05/18 08:33 Resp 20 10/05/18 06:56 BP 136/71 10/05/18 08:33 Pulse Ox 95 10/05/18 06:56 Weight - Most Recent: 104 lb 2 oz I&O - Last 24 hours: Intake & Output 10/04/18 10/05/18 10/05/18 22:59 06:59 14:59 Intake Total 500 200 Output Total 1275 575 Balance -775 -375 Lab Results - Last 24 hrs: Laboratory Results - last 24 hr 10/04/18 Range/Units 07:10 Magnesium 1.9 (1.8-2.4) mg/dL B-Natriuretic Peptide 4970 H (0-100) pg/mL Med Orders - Current: Current Medications Acetaminophen (Tylenol) 650 mg PO Q6H PRN PRN Reason: Pain/Fever Last Admin: 10/05/18 03:05 Dose: 650 mg Albuterol/Ipratropium (Duoneb 3.0-0.5 Mg/3 Ml) 3 ml INH QID PRN PRN Reason: Shortness of Breath Aspirin (Halfprin) 81 mg PO DAILY [facility]OUISE Last Admin: 10/05/18 08:31 Dose: 81 mg Atropine Sulfate (Atropine 0.1 Mg/Ml) 0 mg IVPUSH ASDIRECTED PRN PRN Reason: Heart Carvedilol (Coreg) 12.5 mg PO BIDMEALS [facility] Last Admin: 10/05/18 08:33 Dose: 12.5 mg Epinephrine HCl (Epinephrine 1:10,000) 1 mg IVPUSH ASDIRECTED PRN PRN Reason: Heart Lidocaine HCl (Xylocaine 2%) 0 mg IVPUSH ASDIRECTED PRN PRN Reason: Heart Lisinopril (Prinivil) 20 mg PO DAILY [facility] Last Admin: 10/05/18 08:33 Dose: 20 mg Nitroglycerin (Nitrostat) 0.4 mg SL ASDIRECTED PRN PRN Reason: Heart Omeprazole (Omeprazole) 20 mg PO ACBREAKFAST [facility] Last Admin: 10/05/18 06:33 Dose: Not Given Ondansetron HCl (Zofran Odt) 4 mg PO TID PRN PRN Reason: Nausea/Vomiting Potassium Chloride (Klor-Con 10) 10 meq PO DAILY [facility] Last Admin: 10/05/18 08:31 Dose: 10 meq Fluticasone/Salmeterol (Advair Diskus 500-50) 1 puff INH BID [facility] Last Admin: 10/04/18 20:04 Dose: Not Given Senna/Docusate Sodium (Senna Plus) 2 tab PO BID [facility] Last Admin: 10/05/18 08:31 Dose: 2 tab Simvastatin (Zocor) 40 mg PO DAILY@1200 [facility] Last Admin: 10/04/18 11:58 Dose: 40 mg Sodium Chloride (Saline Flush) 10 ml FLUSH Q8HR PRN PRN Reason: keep vein open Last Admin: 10/04/18 13:58 Dose: 10 ml Discontinued Medications Furosemide (Lasix) 40 mg IVPUSH NOW ONE Stop: 10/02/18 17:44 Last Admin: 10/02/18 17:51 Dose: 40 mg Furosemide (Lasix) 40 mg IVPUSH NOW ONE Stop: 10/03/18 10:24 Last Admin: 10/03/18 11:03 Dose: 40 mg Furosemide (Lasix) 20 mg IVPUSH NOW ONE Stop: 10/03/18 16:01 Last Admin: 10/03/18 15:23 Dose: 20 mg Furosemide (Lasix) 40 mg IVPUSH NOW ONE Stop: 10/04/18 13:08 Last Admin: 10/04/18 13:57 Dose: 40 mg Lisinopril (Prinivil) 10 mg PO DAILY [facility] Last Admin: 10/03/18 10:01 Dose: 10 mg - Exam Quality Assessment: Reports: Supplemental Oxygen. Denies: Skin Breakdown General: Reports: Alert, Oriented, Cooperative, No Acute Distress Neck: Reports: No JVD Lungs: Reports: Clear to Auscultation, Normal Respiratory Effort. Denies: Crackles Cardiovascular: Reports: Regular Rhythm, Murmurs GI/Abdominal Exam: Soft Back Exam: Denies: CVA Tenderness (R) Neurological: Reports: No New Focal Deficit Psy/Mental Status: Reports: Alert, Normal Affect, Normal Mood
[2018-10-05] MEDS: Fluticasone/Salmeterol 500-50 MCG Inhalation Powder 14/Diskus INH SCH (10:17)
[2018-10-05] MEDS: Simvastatin 20 MG Tab PO SCH (11:34)
== END 2018-10-05 12:15 | disposition home or self-care (01) | DRG 293 ==
LOC: KA.ED 16:27 → KA.MS 17:45
PROVIDERS: ADMIT Physician Assistant Surgical; ATTEND Family Medicine
DX: I11.0 Hypertensive heart disease with heart failure (principal); I50.23 Acute on chronic systolic (congestive) heart failure; I25.10 Atherosclerotic heart disease of native coronary artery without angina pectoris; E78.5 Hyperlipidemia, unspecified; I25.5 Ischemic cardiomyopathy; J44.9 Chronic obstructive pulmonary disease, unspecified; N40.0 Benign prostatic hyperplasia without lower urinary tract symptoms; E78.00 Pure hypercholesterolemia, unspecified; H91.90 Unspecified hearing loss, unspecified ear; H54.7 Unspecified visual loss; K59.09 Other constipation; M19.90 Unspecified osteoarthritis, unspecified site; G89.29 Other chronic pain; M54.9 Dorsalgia, unspecified; Z96.619 Presence of unspecified artificial shoulder joint; F17.200 Nicotine dependence, unspecified, uncomplicated; Z99.81 Dependence on supplemental oxygen; Z79.82 Long term (current) use of aspirin; Z85.46 Personal history of malignant neoplasm of prostate; Z85.828 Personal history of other malignant neoplasm of skin; Z95.1 Presence of aortocoronary bypass graft
CPT/HCPCS: 36415; 71046; 80048; 80053; 83735; 83880; 84484; 85025; 93005; 99284; 99285-25; A9270-GY; J1940

== ENCOUNTER 2019-03-16 19:00 | Emergency (ER) | payer MEDICARE ==
[2019-03-16] MEDS ORDERED: Acetaminophen/HYDROcodone 325-5 MG Tab PO ONE ×2 (19:31→20:39)
--- NOTE | 2019-03-16 19:39 | EDM.PDOC ---
ED HPI GENERAL MEDICAL PROBLEM - General Chief Complaint: Back Pain or Injury Stated Complaint: fell this am down 2 steps, rib and back pain Time Seen by Provider: 03/16/19 19:30 Source of Information: Reports: Patient History Limitations: Reports: No Limitations - History of Present Illness INITIAL COMMENTS - FREE TEXT/NARRATIVE: Patient is an 88-year-old gentleman who presents to the emergency department this evening with a complaint of fall. Patient states approximately 9 a.m. this morning he was exiting the front of his house and missed the last step of the staircase falling forward. Patient states he landed on his chest. He now complains of anterior chest pain and neck pain. Patient states that he did not strike his head, no loss of consciousness, is not dizzy, blurry vision, back pain, abdominal pain, hip pain, or extremity discomfort. Daughter at bedside and corroborates patient's depiction of the event. Onset: Today Onset Date: 03/16/19 Onset Time: 08:00 Duration: Hour(s): Location: Reports: Neck, Chest Quality: Reports: Ache Severity: Moderate Improves with: Reports: None Worsens with: Reports: Movement Context: Reports: Trauma (Fall from standing position) Associated Symptoms: Reports: Shortness of Breath Treatments PUNCHBOARD INSERTER: Reports: Acetaminophen - Related Data Allergies Allergy/AdvReac Type Severity Reaction Status Date / Time No Known Allergies Allergy Verified 10/02/18 19:37 Home Meds: Home Meds Aspirin [Halfprin] 81 mg PO DAILY 08/24/15 [History] Colestipol [Colestipol HCl] 1 gm PO DAILY 08/24/15 [History] Nitroglycerin [Nitrostat] 0.4 mg SL Q5M PRN 08/24/15 [History] Simvastatin [Zocor] 40 mg PO DAILY@1200 08/24/15 [History] Vit A/Vit C/Vit E/Zinc/Copper [Preservision Areds Softgel] 2 cap PO BID [History] Albuterol/Ipratropium [DuoNeb 3.0-0.5 MG/3 ML] 1 dose INH QID PRN 01/12/18 [ History] Budesonide/Formoterol Fumarate [Symbicort 160-4.5 Mcg Inhaler] 2 puff IH BID 12/25 [History] Carvedilol [Coreg] 12.5 mg PO BIDMEALS 01/12/18 [History] Naproxen Sodium 660 mg PO TID 01/12/18 [History] Methocarbamol [Robaxin-750] 750 mg PO TID PRN #15 tablet 06/30/18 [Rx] Furosemide [Lasix] 20 mg PO DAILY 07/02/18 [History] Trolamine Salicylate/Aloe Vera [Aspercreme 10%] 1 gm TOP Q1H PRN #1 tube [Rx] Acetaminophen [Tylenol] 650 mg PO Q6H PRN 10/02/18 [History] Omeprazole 20 mg PO DAILY 10/02/18 [History] Ondansetron [Zofran ODT] 4 mg PO TID PRN 10/02/18 [History] Sennosides/Docusate Sodium [Senna Plus Tablet] 2 tab PO BID 10/02/18 [History] Terazosin [Hytrin] 1 mg PO BEDTIME 10/02/18 [History] Lisinopril/Hydrochlorothiazide [Lisinopril-Hctz 20-12.5 mg Tab] 1 each PO DAILY #30 tablet 10/05/18 [Rx] Past Medical History HEENT History: Reports: Hard of Hearing, Impaired Vision, Other (See Below) Other HEENT History: wears glasses Cardiovascular History: Reports: Cardiomyopathy, Heart Failure, High Cholesterol , Hypertension, CA Respiratory History: Reports: COPD, Pneumonia, Recurrent, Other (See Below) Other Respiratory History: O2 prn - uses 75% of the day - @L/NC Gastrointestinal History: Reports: Chronic Constipation Genitourinary History: Reports: Other (See Below) Other Genitourinary History: prostate Ca Musculoskeletal History: Reports: Arthritis, Back Pain, Chronic, Other (See Below) Other Musculoskeletal History: severe backpain for past 6-8 weeks, PT/ chiropractitioner for it ineffetive, HX compresses disk Neurological History: Reports: None Psychiatric History: Reports: None Endocrine/Metabolic History: Reports: None Hematologic History: Reports: None Immunologic History: Reports: None Oncologic (Cancer) History: Reports: Prostate, Other (See Below) Other Oncologic History: skin CAncer Dermatologic History: Reports: Other (See Below) Other Dermatologic History: skin cancer - scattered dry scabs and fine red rash to upper back due to same - Infectious Disease History Infectious Disease History: Reports: Chicken Pox, Measles, Mumps - Past Surgical History Head Surgeries/Procedures: Reports: None HEENT Surgical History: Reports: LASIK Cardiovascular Surgical History: Reports: Coronary Artery Bypass Respiratory Surgical History: Reports: Other (See Below) Other Respiratory Surgeries/Procedures: "cough for % years, had lung aspirated - sml particles where removed" GI Surgical History: Reports: Colonoscopy Male Surgical History: Reports: None Endocrine Surgical History: Reports: None Neurological Surgical History: Reports: None Musculoskeletal Surgical History: Reports: Shoulder Replacement, Shoulder Surgery, Other (See Below) Other Musculoskeletal Surgeries/Procedures:: back surgery 08/08/2018 Oncologic Surgical History: Reports: Other (See Below) Other Oncologic Surgeries/Procedures: skin biopsy Dermatological Surgical History: Reports: Skin Biopsy, Other (See Below) Social & Family History - Family History Family Medical History: Noncontributory Respiratory: Reports: Asthma - Tobacco Use Smoking Status *Q: Former Smoker Years of Tobacco use: 55 Used Tobacco, but Quit: Yes Month/Year Tobacco Last Used: 07/1999 - Caffeine Use Caffeine Use: Reports: Coffee - Recreational Drug Use Recreational Drug Use: No Review of Systems - Review of Systems Review Of Systems: ROS reveals no pertinent complaints other than HPI. Constitutional: Reports: No Symptoms Eyes: Reports: No Symptoms Ears: Reports: No Symptoms Nose: Reports: No Symptoms Mouth/Throat: Reports: No Symptoms Respiratory: Reports: Shortness of Breath, Pleuritic Chest Pain Cardiovascular: Reports: No Symptoms GI/Abdominal: Reports: No Symptoms Genitourinary: Reports: No Symptoms Musculoskeletal: Reports: Neck Pain Skin: Reports: No Symptoms Neurological: Reports: No Symptoms Psychiatric: Reports: No Symptoms ED EXAM, GENERAL - Physical Exam Exam: See Below Exam Limited By: No Limitations General Appearance: Alert, WD/WN, No Apparent Distress Nose: Normal Inspection, No Blood Throat/Mouth: Normal Inspection, Normal Oropharynx, No Airway Compromise Head: Atraumatic, Normocephalic Neck: Limited Range of Motion, Tender Lateral. No: Tender Midline Respiratory/Chest: No Respiratory Distress, Decreased Breath Sounds (Bibasilar) , Other (Anterior bilateral lower ribs 10 to palpation. No ecchymosis or flail chest noted) Cardiovascular: Regular Rate, Rhythm GI/Abdominal: Normal Bowel Sounds, Soft, Other (Reducible hernia epigastric region) Back Exam: Normal Inspection, Full Range of Motion Extremities: Normal Inspection, Normal Range of Motion, Non-Tender, Normal Capillary Refill Neurological: Alert, Oriented, CN II-XII Intact, Normal Cognition Psychiatric: Normal Affect, Normal Mood Skin Exam: Warm, Dry, Intact, Normal Color, No Rash Course - Orders/Labs/Meds Orders: Active Orders 24 hr Category Date Time Status Cervical Spine 2V or 3V [CR] Stat Exams 03/16/19 19:31 Ordered Ribs 3V w Chest Bi [CR] Routine Exams 03/16/19 19:31 Ordered Acetaminophen/HYDROcodone [[place] 325-5 MG] Med 03/16/19 19:31 Once 1 tab PO ONETIME ONE Medication Orders Hydrocodone Bitart/Acetaminophen ([place] 325-5 Mg) 1 tab PO ONETIME ONE Stop: 03/16/19 19:32 Meds: Medications Generic Name Dose Route Start Last Admin Trade Name Freq PRN Reason Stop Dose Admin Hydrocodone Bitart/Acetaminophen 1 tab 03/16/19 19:31 [place] 325-5 Mg PO 03/16/19 19:32 ONETIME ONE - Radiology Interpretation Free Text/Narrative:: X-ray cervical spine shows no acute fracture. Chest x-ray shows mild CHF, with left lateral fifth rib fracture. - Re-Assessments/Exams Free Text/Narrative Re-Assessment/Exam: 03/16/19 20:38 Patient afebrile, vital signs stable, pain controlled with hydrocodone. Patient denies chest pain, shortness of breath, or headache. Daughter at bedside. Patient given hydrocodone 5 mg to go home. Strict instructions on when to take and not to drive. Patient will follow-up at [facility] on Monday. Return to emergency department if symptoms worsen. 03/16/19 20:44 Departure - Departure Time of Disposition: 20:42 Disposition: Home, Self-Care 01 Condition: Good Clinical Impression: Fall in elderly patient Closed rib fracture Qualifiers: Encounter type: initial encounter Rib fracture type: single rib Laterality: left Qualified Code(s): S22.32XA - Fracture of one rib, left side, initial encounter for closed fracture Chest wall contusion Qualifiers: Encounter type: initial encounter Laterality: unspecified laterality Qualified Code(s): S20.219A - Contusion of unspecified front wall of thorax, initial encounter - Discharge Information Instructions: Fall Prevention in the Home, Adult, [id number], Chest Contusion , Adult, [id number], Rib Fracture, [id number], Pain Medicine Instructions, [id number] Additional Instructions: Follow-up at [facility] on Monday. Return to emergency department sooner if symptoms continue or worsen. Take medication as directed. Do not drive while taking medication. - My Orders Last 24 Hours: My Active Orders 03/16/19 19:31 Cervical Spine 2V or 3V [CR] Stat Ribs 3V w Chest Bi [CR] Routine Acetaminophen/HYDROcodone [[place] 325-5 MG] 1 tab PO ONETIME ONE - Assessment/Plan Last 24 Hours: My Active Orders 03/16/19 19:31 Cervical Spine 2V or 3V [CR] Stat Ribs 3V w Chest Bi [CR] Routine Acetaminophen/HYDROcodone [[place] 325-5 MG] 1 tab PO ONETIME ONE Assessment:: Rib fracture Plan: Follow-up with PCP
[2019-03-16 20:21] VITALS: BP 181/55; PULSE 54
--- NOTE | 2019-03-17 10:36 | CR ---
[id number] RAD/RAD Cervical Spine 2-3V EXAM: CERVICAL SPINE 3 VIEWS INDICATION: FALL COMPARISON: None. DISCUSSION: 3 mm spondylolisthesis C5 on C6. The C7 and T1 vertebral bodies are not well seen. Osteopenia. No fracture is identified. Consider CT if concern persists. The prevertebral soft tissues are normal in thickness. Moderate degenerative disc disease C3-C4, C4-C5 and C5-C6. Moderate facet arthropathy throughout the cervical spine. IMPRESSION: 1. Mild spondylolisthesis C5-C6. 2. Moderate cervical spondylosis. Jose Bagley MD 03/17/19 1035 Thank you for allowing us to participate in the care of your patient.
--- NOTE | 2019-03-17 10:59 | CR ---
[id number] RAD/RAD Ribs [place] 4V W PA Chest EXAM: RAD Ribs [place] 4V W PA Chest INDICATION: Fall. COMPARISON: October 02, 2017. FINDINGS: Bilateral calcified pleural plaques are compatible with prior stenosis exposure. Mild peripheral and basal predominant interstitial opacities likely relate to underlying interstitial lung disease, but could obscure other acute pathology. There is mild cardiomegaly with borderline central vascular congestion similar to prior study. Interval improvement or resolution of pleural effusions. Sternotomy. There are chronic bilateral rib fractures. Possible acute right posterior seventh and left lateral fifth rib fractures. Left shoulder arthroplasty. IMPRESSION: 1. Possible acute right seventh and left fifth rib fractures. 2. No acute cardiopulmonary findings. Jose Bagley MD 03/17/19 1058 Thank you for allowing us to participate in the care of your patient.
== END 2019-03-16 20:55 | disposition home or self-care (01) ==
LOC: KA.ED 19:00
DX: S22.32XA Fracture of one rib, left side, initial encounter for closed fracture (principal); S20.212A Contusion of left front wall of thorax, initial encounter; I11.0 Hypertensive heart disease with heart failure; I50.9 Heart failure, unspecified; E78.00 Pure hypercholesterolemia, unspecified; Z79.51 Long term (current) use of inhaled steroids; Z79.899 Other long term (current) drug therapy; Z87.891 Personal history of nicotine dependence; Z79.82 Long term (current) use of aspirin; W10.9XXA Fall (on) (from) unspecified stairs and steps, initial encounter
CPT/HCPCS: 71111; 72040; 99283; A9270; 99284